=== PATIENT | female | born 1995 | race Two or more races ===

== ENCOUNTER 2023-08-27 22:44 | Inpatient (IN) | payer OTHER ==
[~2023-08-27] VITALS: Ht 160 cm; Wt 78.0 kg
[2023-08-27 23:00] LABS: Basophils # (auto) 0.1 10 ^3/uL (0-0.2); Basophils % (auto) 1.3 % (0.0-2.0); Eosinophils # (auto) 0.1 10 ^3/uL (0-0.8); Eosinophils % (auto) 1.8 % (0.0-7.0); Hematocrit 42.5 % (36.0-46.0); Hemoglobin 14.1 g/dL (12.2-16.2); Lymphocytes # (auto) 3.9 10 ^3/uL (0.4-5.4); Lymphocytes % (auto) 51.6 % (10.0-50.0); Mean Corpuscular Hemoglobin 28.5 pg (28.0-32.0); Mean Corpuscular Hgb Conc. 33.1 g/dL (32.0-36.0); Monocytes # (auto) 0.6 10 ^3/uL (0-1.3); Monocytes % (auto) 7.6 % (0.0-12.0); Neutrophils # (auto) 2.9 10 ^3/uL (1.6-8.6); Neutrophils % (auto) 37.7 % (37.0-80.0); Nucleated Red Blood Cells % 0.1 %; Red Blood Cells 4.94 10^6/uL (4.0-5.20); Red Cell Distribution Width 15.6 % (11.8-14.3); White Blood Cell 7.6 10^3/uL (4.4-10.8)
[2023-08-27 23:19] LABS: Alanine Aminotransferase 97 U/L (7-40); Albumin 4.8 g/dL (3.2-4.8); Alkaline Phosphatase 125 U/L (46-116); Anion Gap 6 (5-15); Aspartate Aminotransferase 77 U/L (13-40); BUN/Creatinine Ratio 8.6 (10.0-20.0); Bilirubin, Total 0.4 mg/dL (0.2-1.0); Blood Urea Nitrogen 7 mg/dL (9-23); Calcium 10.4 mg/dL (8.5-10.1); Carbon Dioxide 29 mmol/L (20-30); Chloride 103 mmol/L (98-107); Glucose 90 mg/dL (74-106); Potassium 3.8 mmol/L (3.5-5.1); Sodium 138 mmol/L (136-145); Total Protein 8.4 g/dL (5.7-8.2)
[2023-08-27] MEDS: ONDANSETRON HCL 4 MG/2 ML VIAL IV ONE (23:29)
[2023-08-27] MEDS: MORPHINE SULFATE 4 MG/ML SYR/VIAL IV ONE (23:30)
[2023-08-28] VITALS (8 sets, daily range): BP systolic 97–140; BP diastolic 47–55; PULSE 53–67; RESP 17–20; TEMP 97.9–98.4; O2SAT 98–100
[2023-08-28 01:42] LABS: Urine Bacteria FEW /hpf (None Seen); Urine Blood Negative /uL (Negative); Urine Clarity Turbid (Clear); Urine Color Light-Yellow (Yellow); Urine Mucus FEW (None Seen); Urine Protein, UAD Negative (Negative); Urine Specific Gravity 1.012 (1.001-1.035); Urine Urobilinogen Normal (Negative); Urine WBC 30 /hpf (0 - 5); Urine pH 6.5 (5.0-9.0)
[2023-08-28] MEDS: NITROFURANTOIN 100 mg CAP PO ONE (03:42)
[2023-08-28] MEDS: NITROGLYCERIN 0.4 MG SL TAB SL ONE (03:42)
[2023-08-28] MEDS ORDERED: MORPHINE SULFATE INJ 2 MG/ml SYRG IV PRN (04:15)
[2023-08-28] MEDS ORDERED: ACETAMINOPHEN 500 MG TAB PO PRN (04:15)
[2023-08-28] MEDS ORDERED: DOCUSATE SOD 100 MG CAP PO PRN (04:15)
[2023-08-28] MEDS ORDERED: ONDANSETRON HCL 4 MG/2 ML VIAL IV PRN (04:15)
[2023-08-28] MEDS: cefTRIAXone 1GM/50ML D5W 50 ML IV SCH (05:24)
[2023-08-28] MEDS: SODIUM CHLOR 0.9% PF (SALINE LOCK) 10ML VIAL/SYR IV SCH (06:02)
[2023-08-28 11:41] LABS: Triglycerides 140 mg/dL (< 150)
[2023-08-28 11:42] LABS: LDL Cholesterol 144 mg/dL (< 100)
[2023-08-28 11:43] LABS: Cholesterol 183 mg/dL (< 200); HDL Cholesterol 27 mg/dL (40-59)
[2023-08-28] MEDS: MORPHINE SULFATE INJ 2 MG/ml SYRG IV PRN (17:11)
[2023-08-28] MEDS: NITROGLYCERIN 0.4 MG SL TAB SL PRN (17:11)
[2023-08-28] MEDS: PANTOPRAZOLE 40 MG TAB PO SCH (20:18)
[2023-08-28] MEDS: ATORVASTATIN 20 MG TAB PO SCH (21:09)
[2023-08-28 22:23] LABS: Erythrocyte Sedimentation Rate 14 mm/hr (0-20)
[2023-08-29] VITALS (8 sets, daily range): BP systolic 90–118; BP diastolic 47–70; PULSE 61–69; RESP 17–20; TEMP 97.8–98.2; O2SAT 98–100
[2023-08-29 08:39] LABS: Amphetamine Screen, Urine Neg (NEGATIVE); Barbiturate Scree,Urine Neg (NEGATIVE); Benzodiazephine Screen, Urine Neg (NEGATIVE); Cocaine Screen, Urine Neg (NEGATIVE); Opiate Scree,Urine Pos (NEGATIVE); Phencyclidine Screen, Urine Neg (NEGATIVE)
[2023-08-29 08:40] LABS: Cannabinoid Screen, Urine Neg (NEGATIVE)
[2023-08-29 13:04] LABS: Basophils # (auto) 0.1 10 ^3/uL (0-0.2); Basophils % (auto) 1.1 % (0.0-2.0); Eosinophils # (auto) 0.2 10 ^3/uL (0-0.8); Hemoglobin 12.8 g/dL (12.2-16.2); Lymphocytes # (auto) 2.9 10 ^3/uL (0.4-5.4); Lymphocytes % (auto) 53.7 % (10.0-50.0); Mean Corpuscular Hemoglobin 28.6 pg (28.0-32.0); Mean Corpuscular Hgb Conc. 32.8 g/dL (32.0-36.0); Mean Corpuscular Volume 87.1 fL (80.0-100.0); Monocytes # (auto) 0.4 10 ^3/uL (0-1.3); Monocytes % (auto) 8.3 % (0.0-12.0); Neutrophils # (auto) 1.7 10 ^3/uL (1.6-8.6); Neutrophils % (auto) 32.9 % (37.0-80.0); Nucleated Red Blood Cells % 0.2 %; Red Blood Cells 4.48 10^6/uL (4.0-5.20); Red Cell Distribution Width 15.2 % (11.8-14.3); White Blood Cell 5.3 10^3/uL (4.4-10.8)
[2023-08-29 13:24] LABS: Alanine Aminotransferase 73 U/L (7-40); Alkaline Phosphatase 113 U/L (46-116); Anion Gap 3 (5-15); Aspartate Aminotransferase 56 U/L (13-40); Bilirubin, Total 0.2 mg/dL (0.2-1.0); Calcium 9.4 mg/dL (8.5-10.1); Carbon Dioxide 28 mmol/L (20-30); Chloride 104 mmol/L (98-107); Glucose 81 mg/dL (74-106); Potassium 4.1 mmol/L (3.5-5.1); Sodium 135 mmol/L (136-145); Total Protein 6.9 g/dL (5.7-8.2)
[2023-08-29 13:28] LABS: BUN/Creatinine Ratio 6.8 (10.0-20.0); Blood Urea Nitrogen < 5 mg/dL (9-23)
[2023-08-29] MEDS ORDERED: PANT40T PO (13:28)
== END 2023-08-29 17:25 | disposition home or self-care (01) | DRG 243 ==
LOC: ER 22:44 → TELE-WESTW 08-28 04:09 → TELE 08-28 04:09 → TELE-WESTW 08-28 06:37
PROVIDERS: ADMIT Internal Medicine Pulmonary Disease; ATTEND Internal Medicine Pulmonary Disease
DX: K21.9 Gastro-esophageal reflux disease without esophagitis (principal); E11.9 Type 2 diabetes mellitus without complications; N39.0 Urinary tract infection, site not specified; E78.5 Hyperlipidemia, unspecified; Z88.6 Allergy status to analgesic agent
CPT/HCPCS: 36415; 80053; 80061; 80307; 81001; 81025; 83036; 83880; 84484; 85025; 85379; 85652; 86141; 87086; 93005; 93306; 96374; 96375; G0378; J2405

== ENCOUNTER 2024-04-14 18:53 | Emergency (ER) | payer OTHER ==
[~2024-04-14 18:53] MED LIST: PANT40T PO
== END 2024-04-14 21:36 | disposition left against medical advice (07) ==
LOC: ER 18:53
DX: R42 Dizziness and giddiness (principal); Z53.21 Procedure and treatment not carried out due to patient leaving prior to being seen by health care provider

== ENCOUNTER 2024-04-15 19:22 | Emergency (ER) | payer OTHER ==
[~2024-04-15] VITALS: Ht 160 cm; Wt 81.2 kg
--- NOTE | 2024-04-15 19:56 | ED.PDOC ---
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 Patient reports consistent bleeding, is no longer using pads or tampons but instead using diapers and is going through 8 per day. Patient has been passing blood clots as well and had 2 episodes of vomiting before ED arrival but has subsided since awaiting here. Patient has seen PCP for vaginal bleeding, was placed on control in which she has been taking but states no change. Patient mentions having no ultrasound done for this. She denies any abdominal pain, fever, chills. Patient also reports that she came into this ED yesterday due to dizziness but ended up leaving but as she got home and was walking upstairs, spouse heard a thump and found patient unconscious on the floor. Patient is unable to recall the event. At this time, patient denies any dizziness. PMHX of DM, bradycardia, and one miscarriage. Time Seen by MD: 19:24 Reviewed Notes: Nurses Notes, Medications, Allergies Allergies: Coded Allergies: Ibuprofen (Verified Allergy, Unknown, 08/27/23) Home Meds Active Scripts Pantoprazole Sodium Sesquihydr (Pantoprazole Sodium) 40 Mg Tab, 40 MG PO DAILY for 10 Days, #10 TAB Prov:ESTIVEN PAVON RESIDENT 08/29/23 Information Source: Patient Mode of Arrival: Ambulatory Timing: Months (2) Severity: Moderate Vaginal Discharge: None Vaginal Lesions: None Bleeding Quality: Bright Red, Clotted Vaginal Mass: None Onset Of Mass/Bleeding: Spontaneous Sexual Activity: Neither Last Consensual [place]: Unknown Control: None Symptoms of Possible : None Associated Signs and Symptoms: Vaginal Bleeding Past Medical History PAST MEDICAL HISTORY: Denies Surgical History: Denies all surgeries 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 Family History Family History: Reviewed,noncontributory to illness, No family hx of Cancer, No family hx of DM, No family hx of Heart monica, No family hx of HTN, No family hx ofKidney monica, No family hx of Liver monica, No family hx of Lung monica, No family hx of Stroke Social History Smoker: Non-Smoker Alcohol: Denies ETOH Use Drugs: Denies Drug Use Lives In: Home Constitutional: denies: chills, diaphoresis, fatigue, fever, malaise, sweats, weakness, others EENTM: denies: blurred vision, double vision, ear bleeding, ear discharge, ear drainage, ear pain, ear ringing, eye pain, eye redness, hearing loss, mouth pain, mouth swelling, nasal discharge, nose bleeding, nose congestion, nose pain, photophobia, tearing, throat pain, throat swelling, voice changes, others Respiratory: denies: cough, hemoptysis, orthopnea, SOB at rest, shortness of breath, SOB with excertion, stridor, wheezing, others Cardiovascular: reports: lightheadedness; denies: chest pain, dizzy spells, diaphoresis, Dyspnea on exertion, edema, irregular heart beat, left arm pain, palpitations, PND, syncope, others Gastrointestinal: denies: abdomen distended, abdominal pain, blood streaked bowels, constipated, diarrhea, dysphagia, difficulty swallowing, hematemesis, melena, nausea, poor appetite, poor fluid intake, rectal bleeding, rectal pain, vomiting, others Genitourinary: reports: abnormal vagina bleeding; denies: burning, dyspareunia, dysuria, flank pain, frequency, hematuria, incontinence, pain, , vagina discharge, urgency, others Neurological: reports: headache; denies: dizziness, fainting, left sided numbness, left sided weakness, numbness, paresthesia, pre-existing deficit, right sided numbness, right sided weakness, seizure, speech problems, tingling, tremors, weakness, others Musculoskeletal: denies: back pain, gout, joint pain, joint swelling, muscle pain, muscle stiffness, neck pain, others Integumetry: denies: bruises, change in color, change in hair/nails, dryness, laceration, lesions, lumps, rash, wounds, others Allergic/Immunocompromised: denies: Difficulty Healing, Frequent Infections, Hives, Itching, others Hematologic/Lymphatic: denies: anemia, blood clots, easy bleeding, easy bruising, swollen glands, others Endocrine: denies: excessive hunger, excessive sweating, excessive thirst, excessive urination, flushing, intolerance to cold, intolerance to heat, unexplained weight gain, unexplained weight loss, others Psychiatric: denies: anxiety, bipolar disorder, depression, hopeless, panic disorder, schizophrenia, sleepless, suicidal, others All Other Systems: Reviewed and Negative Physical Exam General Appearance: No Apparent Distress, Normal HEENT: Normal ENT Inspection, Pharynx Normal, TMs Normal Neck: Full Range of Motion, Non-Tender, Normal, Normal Inspection Respiratory: Chest Non-Tender, Lungs Clear, No Accessory Muscle Use, No Respiratory Distress, Normal Breath Sounds Cardiovascular: No Edema, No JVD, No Murmur, No Gallop, Normal Peripheral Pulses, Regular Rate/Rhythm Breast Exam: Deferred Gastrointestinal: No Organomegaly, Non Tender, No Pulsatile Mass, Normal Bowel Sounds, Soft Genitalia: Deferred Pelvic: Deferred Rectal: Deferred Extremities: No calf tenderness, Normal capillary refill, Normal inspection, Normal range of motion, Non-tender, No pedal edema Musculoskeletal : Apperance: Normal 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 Was a procedure done?: No Differential Diagnosis (BALL POINT SPLITTER) Vaginal Bleeding: - Threatened, Abruptio Placentae, Blood Loss Anemia, Cervicitis, Ectopic , Hormonal, Menorrhagia, Menometrorrhagia, Menstrual Bleeding, Myomatous Uterus, PID, UTI, Vaginitis X-Ray, Labs, Meds, VS Vital Signs Date Time Temp Pulse Resp B/P (MAP) Pulse Ox O2 Delivery O2 Flow Rate FiO2 04/16/24 03:46 98.2 86 16 113/52 (72) 99 98.2 04/16/24 03:45 98.1 86 16 113/52 98.1 04/16/24 03:00 87 18 104/56 (72) 97 04/16/24 02:09 98.3 86 18 104/58 98.3 04/16/24 02:09 98.3 86 18 104/58 (73) 99 98.3 04/16/24 01:56 98.1 86 18 104/70 98.1 04/16/24 01:56 98.1 86 16 104/70 (81) 98 98.1 04/16/24 00:18 98.2 86 18 92/47 98.2 04/16/24 00:18 98.2 86 18 92/47 (62) 98 98.2 04/16/24 00:11 98.2 04/16/24 00:00 88 04/15/24 23:53 97.9 92 16 89/54 (66) 99 97.9 04/15/24 23:53 97.9 92 16 89/54 97.9 04/15/24 23:15 87 17 97 Room Air* 0 21 04/15/24 23:11 98.2 04/15/24 22:45 98.2 89 18 118/68 (85) 99 98.2 04/15/24 19:59 98.9 99 20 127/70 (89) 100 Lab Test 04/15/24 20:10 04/15/24 19:55 Range/Units White Blood Count 8.4 4.4-10.8 10^3/uL Red Blood Count 2.44 L 4.0-5.20 10^6/uL Hemoglobin 7.4 L 12.2-16.2 g/dL Hematocrit 22.4 L 36.0-46.0 % Mean Corpuscular Volume 91.7 80.0-100.0 fL Mean Corpuscular Hemoglobin 30.1 28.0-32.0 pg Mean Corpuscular Hemoglobin Concent 32.8 32.0-36.0 g/dL Red Cell Distribution Width 13.7 11.8-14.3 % Platelet Count 340 140-450 10^3/uL Mean Platelet Volume 7.8 6.9-10.8 fL Neutrophils (%) (Auto) 53.7 37.0-80.0 % Lymphocytes (%) (Auto) 38.8 10.0-50.0 % Monocytes (%) (Auto) 4.5 0.0-12.0 % Eosinophils (%) (Auto) 2.0 0.0-7.0 % Basophils (%) (Auto) 1.0 0.0-2.0 % Neutrophils # (Auto) 4.5 1.6-8.6 10 ^3/uL Lymphocytes # (Auto) 3.3 0.4-5.4 10 ^3/uL Monocytes # (Auto) 0.4 0-1.3 10 ^3/uL Eosinophils # (Auto) 0.2 0-0.8 10 ^3/uL Basophils # (Auto) 0.1 0-0.2 10 ^3/uL Nucleated Red Blood Cells 1.5 % Sodium Level 140 136-145 mmol/L Potassium Level 3.6 3.5-5.1 mmol/L Chloride Level 105 98-107 mmol/L Carbon Dioxide Level 26 20-31 mmol/L Anion Gap 9 5-15 Blood Urea Nitrogen 6 L 9-23 mg/dL Creatinine 0.93 0.550-1.02 mg/dL Glomerular Filtration Rate Calc 85 >90 mL/min BUN/Creatinine Ratio 6.5 L 10.0-20.0 Serum Glucose 118 H 74-106 mg/dL Calcium Level 9.6 8.7-10.4 mg/dL Total Bilirubin 0.2 0.2-1.0 mg/dL Aspartate Amino Transferase (AST) 55 H 13-40 U/L Alanine Aminotransferase (ALT) 45 H 7-40 U/L Alkaline Phosphatase 84 46-116 U/L Total Protein 6.9 5.7-8.2 g/dL Albumin 4.4 3.2-4.8 g/dL Beta HCG, Quantitative 0.4 L 1.5-4.2 mIU/mL Urine Color Light-orange Yellow Urine Clarity Turbid H Clear Urine pH 6.5 5.0-9.0 Urine Specific [place] 1.043 H 1.001-1.035 Urine Protein 2+ H Negative Urine Ketones 1+ H Negative Urine Blood 3+ H Negative /uL Urine Nitrite Negative Negative Urine Bilirubin Negative Negative Urine Urobilinogen 3 H Negative mg/dL Urine Leukocyte Esterase 1+ Negative /uL Urine RBC 1507 0 - 4 /hpf Urine Microscopic WBC 1 0-5 /HPF Urine Squamous Epithelial Cells Few <5 /hpf Urine Bacteria None seen None Seen /hpf Urine Mucus Few None Seen Urine Glucose Normal Normal mg/dL Current Medications Medications (Trade) Dose Ordered Sig/Lita Route Start Time Stop Time Status Last Admin Acetaminophen (Tylenol Tablet) 650 mg ONCE ONCE PO 04/15/24 20:00 04/15/24 20:16 DC 04/15/24 23:11 Acetaminophen/ Hydrocodone Bitart ([place] 5/325MG Tab) 1 tab ONCE ONCE PO 04/16/24 00:30 04/16/24 00:31 DC 04/16/24 00:37 X-Ray, Labs, Meds, VS Comment Pelvic US FINDINGS: The uterus is heterogeneous in echogenicity related to fibroids the largest measuring up to 3.2 cm. Endometrium is homogeneous in echogenicity measuring 9 mm in thickness. Right ovary measures 2.5 X 2.1 X 2.7 cm and appears unremarkable with normal Doppler color flow. Left ovary measures 4.1 X 3.1 X 3.2 cm with normal Doppler color flow. There is a left ovarian cyst measuring up to 3.2 cm. IMPRESSION: Uterine fibroids. Left ovarian cyst measuring up to 3.2 cm. MDM: Patient with history as above presented with vaginal bleeding. History obtained from patient. Patient was nontoxic, stable, afebrile, ambulatory, no acute distress. Exam as above. Labs reviewed. CBC did not show leukocytosis. Anemia was seen with hemoglobin 7.4 and hematocrit at 22.4. CMP did not show significant electrolyte abnormalities. AST elevated at 55 and ALT elevated at 45. Beta hCG was negative. Urinalysis was significant for urine blood and urine RBC, however negative for acute infection. Independently reviewed imaging. Pelvic ultrasound showed uterine fibroids. Reviewed external records. All findings were discussed with the patient. Differential diagnosis considered. Overall presentation is consistent with blood loss anemia due to uterine fibroids. Low suspicion for ovarian torsion, acute infection, ectopic . Patient was treated with [place] and blood transfusions with improvement in symptoms. Patient was reevaluated and vital signs were reviewed. Consideration was given for admission, but the patient was stable for outpatient management. Patient was advised to follow up with OBGYN for further evaluation. Disposition: Discussed the need to follow up diagnostics, including incidental findings. Discharged the patient with instructions to obtain outpatient follow up in 1-2 days of today's symptoms and findings, with strict return precautions if patient develops new or worsening symptoms. This medical document was created using the [employer] dictation system. Although this document has been carefully reviewed, there may still be some phonetic and typographical errors, which are due to imperfections of the [employer] program, and do not reflect any compromise in the patient's medical care. Time of 1ST Reevaluation: 20:00 Reevaluation 1ST: Unchanged Time of 2ND Reevaluation: 03:54 Reevaluation 2ND: Improved Patient Education/Counseling: Diagnosis, Treatment, Prognosis Family Education/Counseling: No Family Present Departure 1 Departure Time of Disposition: 03:55 Impression: Primary Impression: Blood loss anemia Additional Impression: Fibroids Disposition: 01 HOME / SELF CARE / HOMELESS Condition: Fair Critical Care Note Critical Care Time?: No Stability Stability form required: No Heart Score Heart Score: Heart Score Response (Comments) Value History N/A 0 EKG N/A 0 Age N/A 0 Risk Factors N/A 0 Troponin N/A 0 Total 0 I personally scribed for ER ([email or web address]) on 04/15/24 at 20:05. Electronically submitted by Teressa Villeda ([facility]). DAVID CHASE PAC Apr 15, 2024 19:56 ER Apr 15, 2024 20:05
[2024-04-15 20:28] LABS: Urine Bacteria None Seen /hpf (None Seen)
[2024-04-15 20:30] LABS: Basophils # (auto) 0.1 10 ^3/uL (0-0.2); Eosinophils # (auto) 0.2 10 ^3/uL (0-0.8); Mean Corpuscular Hemoglobin 30.1 pg (28.0-32.0); Monocytes # (auto) 0.4 10 ^3/uL (0-1.3); Monocytes % (auto) 4.5 % (0.0-12.0); Red Blood Cells 2.44 10^6/uL (4.0-5.20)
[2024-04-15 20:32] LABS: Hematocrit 22.4 % (36.0-46.0); Hemoglobin 7.4 g/dL (12.2-16.2); Lymphocytes # (auto) 3.3 10 ^3/uL (0.4-5.4); Lymphocytes % (auto) 38.8 % (10.0-50.0); Mean Corpuscular Hgb Conc. 32.8 g/dL (32.0-36.0); Mean Corpuscular Volume 91.7 fL (80.0-100.0); Neutrophils # (auto) 4.5 10 ^3/uL (1.6-8.6); Neutrophils % (auto) 53.7 % (37.0-80.0); Nucleated Red Blood Cells % 1.5 %; Platelet Count (auto) 340 10^3/uL (140-450); Red Cell Distribution Width 13.7 % (11.8-14.3); White Blood Cell 8.4 10^3/uL (4.4-10.8)
[2024-04-15 20:38] LABS: Urine Blood 3+ /uL (Negative); Urine Clarity Turbid (Clear); Urine Color Light-Orange (Yellow); Urine Mucus FEW (None Seen); Urine Protein, UAD 2+ (Negative); Urine Specific Gravity 1.043 (1.001-1.035); Urine Squamous Epithelial Cell FEW /hpf (<5); Urine Urobilinogen 3 mg/dL (Negative); Urine WBC 1 /HPF (0-5); Urine pH 6.5 (5.0-9.0)
[2024-04-15 20:48] LABS: Alkaline Phosphatase 84 U/L (46-116); Anion Gap 9 (5-15); BUN/Creatinine Ratio 6.5 (10.0-20.0); Calcium 9.6 mg/dL (8.7-10.4); Carbon Dioxide 26 mmol/L (20-31); Chloride 105 mmol/L (98-107); Potassium 3.6 mmol/L (3.5-5.1); Sodium 140 mmol/L (136-145)
[2024-04-15 20:49] LABS: Albumin 4.4 g/dL (3.2-4.8); Total Protein 6.9 g/dL (5.7-8.2)
[2024-04-15 20:53] LABS: Alanine Aminotransferase 45 U/L (7-40); Aspartate Aminotransferase 55 U/L (13-40); Bilirubin, Total 0.2 mg/dL (0.2-1.0); Blood Urea Nitrogen 6 mg/dL (9-23); Glucose 118 mg/dL (74-106)
--- NOTE | 2024-04-15 21:56 | DVH ---
INDICATION: Vaginal bleeding x 3 months TECHNIQUE: Multiple real-time grayscale transabdominal sonographic images along with color and duplex doppler of the uterus and ovaries were obtained. COMPARISON: None FINDINGS: The uterus is heterogeneous in echogenicity related to fibroids the largest measuring up to 3.2 cm. E ndometrium is homogeneous in echogenicity measuring 9 mm in thickness. Right ovary measures 2.5 X 2.1 X 2.7 cm and appears unremarkable with normal Doppler color flow. Left ovary measures 4.1 X 3.1 X 3.2 cm with normal Doppler color flow. There is a left ovarian cyst m easuring up to 3.2 cm. IMPRESSION: Uterine fibroids. Left ovarian cyst measuring up to 3.2 cm.
[2024-04-15] MEDS: ACETAMINOPHEN 325 MG TAB PO ONE (23:11)
[2024-04-15 23:15] VITALS: PULSE 87; RESP 17; O2SAT 97
[2024-04-15 23:53] VITALS: BP 89/54; PULSE 92; RESP 16; TEMP 97.9
[2024-04-16 00:18] VITALS: BP 92/47; PULSE 86; RESP 18; TEMP 98.2
[2024-04-16] MEDS: HYDROcodone-ACET 5/325MG TAB PO ONE (00:37)
[2024-04-16 01:56] VITALS: BP 104/70; PULSE 86; RESP 18; TEMP 98.1
[2024-04-16 02:09] VITALS: BP 104/58; PULSE 86; RESP 18; TEMP 98.3
[2024-04-16 02:28] VITALS: BP 102/56; PULSE 92; RESP 15; TEMP 98
[2024-04-16 03:45] VITALS: BP 113/52; PULSE 86; RESP 16; TEMP 98.1
[2024-04-16 03:46] VITALS: BP 113/52; PULSE 86; RESP 16; TEMP 98.2; O2SAT 99
== END 2024-04-16 04:12 | disposition home or self-care (01) ==
LOC: ER 19:22
DX: D50.0 Iron deficiency anemia secondary to blood loss (chronic) (principal); D25.9 Leiomyoma of uterus, unspecified; N83.202 Unspecified ovarian cyst, left side; E11.9 Type 2 diabetes mellitus without complications; Z79.899 Other long term (current) drug therapy; Z88.6 Allergy status to analgesic agent
CPT/HCPCS: 36415; 36430; 76856; 80053; 81001; 84702; 85025; 86850; 86900; 86901; 86920; 99285; P9016

== ENCOUNTER 2024-06-15 09:36 | Inpatient (IN) | payer OTHER ==
[~2024-06-15] VITALS: Ht 160 cm; Wt 77.4 kg
[2024-06-15 10:23] LABS: Eosinophils # (auto) 0 10 ^3/uL (0-0.8); Eosinophils % (auto) 0.2 % (0.0-7.0); Mean Corpuscular Hemoglobin 23.1 pg (28.0-32.0)
[2024-06-15 10:24] LABS: Basophils # (auto) 0.1 10 ^3/uL (0-0.2); Basophils % (auto) 0.6 % (0.0-2.0); Hematocrit 33.8 % (36.0-46.0); Hemoglobin 10.4 g/dL (12.2-16.2); Lymphocytes # (auto) 1.4 10 ^3/uL (0.4-5.4); Lymphocytes % (auto) 15.1 % (10.0-50.0); Mean Corpuscular Hgb Conc. 30.6 g/dL (32.0-36.0); Mean Corpuscular Volume 75.4 fL (80.0-100.0); Monocytes # (auto) 0.3 10 ^3/uL (0-1.3); Neutrophils # (auto) 7.6 10 ^3/uL (1.6-8.6); Neutrophils % (auto) 81.1 % (37.0-80.0); Nucleated Red Blood Cells % 0.1 %; Platelet Count (auto) 483 10^3/uL (140-450); Red Blood Cells 4.49 10^6/uL (4.0-5.20); Red Cell Distribution Width 18.6 % (11.8-14.3); White Blood Cell 9.4 10^3/uL (4.4-10.8)
[2024-06-15 10:26] LABS: Chloride 106 mmol/L (98-107); Potassium 3.8 mmol/L (3.5-5.1); Sodium 138 mmol/L (136-145)
[2024-06-15 10:27] LABS: Anion Gap 8 (5-15); Calcium 9.4 mg/dL (8.7-10.4); Carbon Dioxide 24 mmol/L (20-31)
[2024-06-15 10:32] LABS: BUN/Creatinine Ratio 13.7 (10.0-20.0); Blood Urea Nitrogen 10 mg/dL (9-23)
[2024-06-15 10:34] LABS: Glucose 115 mg/dL (74-106)
[2024-06-15 10:39] LABS: Urine Bacteria None Seen /hpf (None Seen)
--- NOTE | 2024-06-15 10:44 | ED.PDOC ---
History of Present Illness HPI Comments 28 y/o obese F, with a Hx of DM, presents with c/o non-radiating, diffused abdominal pain, nausea, vomiting, diarrhea, shortness of breath, and lightheadedness, today. Patient endorses on ongoing symptoms following initial unprovoked onset, last night, with accompanying several near-syncope events. Patient reports no recent sick contact, travel, spoiled food intake, or illicit substance use along with any additional relevant or pertinent information. Patient denies any hematemesis, constipation, urinary symptoms, chest pain, fever, chills, or other associated symptoms or modifiers at this time. Chief Complaint: Abdominal Pain Time Seen by MD: 10:20 Primary Care Provider: [facility] Reviewed Notes: Nurses Notes, Medications, Allergies Allergies: Coded Allergies: Ibuprofen (Verified Allergy, Unknown, 08/27/23) Home Meds Active Scripts Pantoprazole Sodium Sesquihydr (Pantoprazole Sodium) 40 Mg Tab, 40 MG PO DAILY for 10 Days, #10 TAB Prov:ESTIVEN PAVON RESIDENT 08/29/23 Information Source: Patient Mode of Arrival: Ambulatory Severity: Moderate Timing: Hours Duration: Since onset Prehospital treatment: None Past Medical History PAST MEDICAL HISTORY: DM Past Medical History (Other): obese Surgical History: Denies all surgeries 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 Family History Family History: Reviewed,noncontributory to illness, No family hx of Cancer, No family hx of DM, No family hx of Heart monica, No family hx of HTN, No family hx ofKidney monica, No family hx of Liver monica, No family hx of Lung monica, No family hx of Stroke Social History Smoker: Non-Smoker Alcohol: Denies ETOH Use Drugs: Denies Drug Use Lives In: Home All Other Systems: Reviewed and Negative (Comprehensive systems review obtained and negative except for what is stated in the HPI.) Physical Exam General Appearance: Moderate Distress HEENT: Normal ENT Inspection, Pharynx Normal, TMs Normal Neck: Full Range of Motion, Non-Tender, Normal, Normal Inspection Respiratory: Chest Non-Tender, Lungs Clear, No Accessory Muscle Use, No Respiratory Distress, Normal Breath Sounds Cardiovascular: No Edema, No JVD, No Murmur, No Gallop, Normal Peripheral Pulses, Regular Rate/Rhythm Breast Exam: Deferred Gastrointestinal: Suprapubic Genitalia: Deferred Pelvic: Deferred Rectal: Deferred Extremities: No calf tenderness, Normal capillary refill, Normal inspection, Normal range of motion, Non-tender, No pedal edema Musculoskeletal : Apperance: Normal Neurologic: Alert, 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 Was a procedure done?: No Differential Dx Considerations may include: gastritis, gastroenteritis, viral syndrome, , spoiled food, diverticulitis, colitis, cholecystitis, cholelithiasis, nephrolithiasis, ovarian cysts, ovarian torsion, among others X-Ray, Labs, Meds, VS Vital Signs Date Time Temp Pulse Resp B/P (MAP) Pulse Ox O2 Delivery O2 Flow Rate FiO2 06/15/24 12:19 76 16 99 Room Air* 0 21 06/15/24 11:35 76 16 148/86 (106) 99 06/15/24 09:43 98.1 83 16 122/76 (91) 99 98.1 Lab Test 06/15/24 10:30 06/15/24 09:52 Range/Units Urine Color Light-yellow Yellow Urine Clarity Clear Clear Urine pH 7.5 5.0-9.0 Urine Specific [place] 1.022 1.001-1.035 Urine Protein 1+ H Negative Urine Ketones 1+ H Negative Urine Blood Negative Negative /uL Urine Nitrite Negative Negative Urine Bilirubin Negative Negative Urine Urobilinogen 2 H Negative mg/dL Urine Leukocyte Esterase Negative Negative /uL Urine RBC 6 0 - 4 /hpf Urine Microscopic WBC 4 0-5 /HPF Urine Squamous Epithelial Cells Few <5 /hpf Urine Bacteria None seen None Seen /hpf Urine Mucus Few None Seen Urine Glucose Normal Normal mg/dL White Blood Count 9.4 4.4-10.8 10^3/uL Red Blood Count 4.49 4.0-5.20 10^6/uL Hemoglobin 10.4 L 12.2-16.2 g/dL Hematocrit 33.8 L 36.0-46.0 % Mean Corpuscular Volume 75.4 L 80.0-100.0 fL Mean Corpuscular Hemoglobin 23.1 L 28.0-32.0 pg Mean Corpuscular Hemoglobin Concent 30.6 L 32.0-36.0 g/dL Red Cell Distribution Width 18.6 H 11.8-14.3 % Platelet Count 483 H 140-450 10^3/uL Mean Platelet Volume 8.2 6.9-10.8 fL Neutrophils (%) (Auto) 81.1 H 37.0-80.0 % Lymphocytes (%) (Auto) 15.1 10.0-50.0 % Monocytes (%) (Auto) 3.0 0.0-12.0 % Eosinophils (%) (Auto) 0.2 0.0-7.0 % Basophils (%) (Auto) 0.6 0.0-2.0 % Neutrophils # (Auto) 7.6 1.6-8.6 10 ^3/uL Lymphocytes # (Auto) 1.4 0.4-5.4 10 ^3/uL Monocytes # (Auto) 0.3 0-1.3 10 ^3/uL Eosinophils # (Auto) 0 0-0.8 10 ^3/uL Basophils # (Auto) 0.1 0-0.2 10 ^3/uL Nucleated Red Blood Cells 0.1 % Sodium Level 138 136-145 mmol/L Potassium Level 3.8 3.5-5.1 mmol/L Chloride Level 106 98-107 mmol/L Carbon Dioxide Level 24 20-31 mmol/L Anion Gap 8 5-15 Blood Urea Nitrogen 10 9-23 mg/dL Creatinine 0.73 0.550-1.02 mg/dL Glomerular Filtration Rate Calc 113 >90 mL/min BUN/Creatinine Ratio 13.7 10.0-20.0 Serum Glucose 115 H 74-106 mg/dL Calcium Level 9.4 8.7-10.4 mg/dL Current Medications Medications (Trade) Dose Ordered Sig/Lita Route Start Time Stop Time Status Last Admin Ceftriaxone Sodium 50 ml @ 100 mls/hr ONCE ONCE IV 06/15/24 11:15 06/15/24 11:44 DC 06/15/24 12:13 Sodium Chloride 1,000 ml @ 1,000 mls/hr Q1H ONCE IV 06/15/24 11:15 06/15/24 12:14 DC 06/15/24 11:45 Ondansetron HCl (Zofran) 4 mg ONCE ONCE IV 06/15/24 11:15 06/15/24 11:17 DC 06/15/24 12:13 CT ABDOMEN AND PELVIS WITHOUT CONTRAST CLINICAL HISTORY: colitis TECHNIQUE: Multiple contiguous axial images of the abdomen and pelvis without intravenous contrast. The images were reformatted degenerate coronal and sa gittal reconstructions. All CT scans at this medical facility are performed using dose modulation techniques as appropriate to a performed exam including the following:Automated exposure control was utilized; adjustment of the MA and/or KV according to pa tient size; and use of iterative reconstruction technique. Radiation Dose Information: CT Dose: CTDI volume is 7.6 mGy. Dose-length product is 393 mGy*cm Comparison: None FINDINGS: Evaluation of the abdomen and pelvis is limited without intravenous contrast. The liver, gallbladder, pancreas, kidneys, adrenal glands, and spleen appear within normal limits. There is no gross evidence of abdominal lymphadenopathy. There is no free fluid or free air. The stomach grossly appears unremarkable. The small and large bowel loops demonstrate normal caliber and distribution. There are scattered diverticula in the colon without evidence of acute diverticulitis. The abdominal aorta and IVC appear within normal limits. The bladder appears unremarkable for the degree of distention. The uterus appears within normal limits. There is a 2.9 cm left ovarian cyst.. There is no gross evidence of a pelvic mass. There is no free fluid collection. Lung bases are clear. There is no acute osseous abnormality. IMPRESSION: 1. There is no acute process in the abdomen and pelvis. 2. 2.9 cm left ovarian cyst. HS:Y Patient alert. Complaining of abdominal pain. Vitals stable. Answering questions. Urinalysis shows ketones. Dehydration. Neutrophils are elevated. CT scan of the abdomen. Establish intravenous access. Was given fluids. Was given Rocephin. Reviewed her history. Explained to the patient. Continue cardiac monitoring. Time of 1ST Reevaluation: 10:50 Reevaluation 1ST: Unchanged Patient Education/Counseling: Diagnosis, Treatment Family Education/Counseling: No Family Present Departure 1 Departure Time of Disposition: 11:13 Impression: Primary Impression: Acute abdominal pain Additional Impression: Gastroenteritis Disposition: 09 ADMITTED INPATIENT Admit to: Med Surg Condition: Guarded Critical Care Note Critical Care Time?: No Stability Stability form required: No Heart Score Heart Score: Heart Score Response (Comments) Value History N/A 0 EKG N/A 0 Age N/A 0 Risk Factors N/A 0 Troponin N/A 0 Total 0 I personally scribed for CLAUDINE LOCO MD ([email or web address]) on 06/15/24 at 12:59. Electronically submitted by Quang Us ([email or web address]). WINNIE CHAMPAGNE Jun 15, 2024 10:44 CLAUDINE LOCO MD Jun 15, 2024 11:15
[2024-06-15 10:52] LABS: Urine Blood Negative /uL (Negative); Urine Clarity Clear (Clear); Urine Color Light-Yellow (Yellow); Urine Mucus FEW (None Seen); Urine Protein, UAD 1+ (Negative); Urine Specific Gravity 1.022 (1.001-1.035); Urine Squamous Epithelial Cell FEW /hpf (<5); Urine Urobilinogen 2 mg/dL (Negative); Urine WBC 4 /HPF (0-5); Urine pH 7.5 (5.0-9.0)
[2024-06-15] MEDS: SODIUM CHLORIDE 0.9% 1,000 ML IV ONE (11:45)
--- NOTE | 2024-06-15 11:48 | DVH ---
CT ABDOMEN AND PELVIS WITHOUT CONTRAST CLINICAL HISTORY: colitis TECHNIQUE: Multiple contiguous axial images of the abdomen and pelvis without intravenous contrast. T he images were reformatted degenerate coronal and sagittal reconstructions. All CT scans at this medical facility are performed using dose modulation techniques as appropriate t o a performed exam including the following:Automated exposure control was utilized; adjustment of the MA and/or KV according to patient size; and use of iterative reconstruction technique. Radiation Dose Information: CT Dose: CTDI volume is 7.6 mGy. Dose-length product is 393 mGy*cm Comparison: None FINDINGS: Evaluation of the abdomen and pelvis is limited without intravenous contrast. The liver, gallbladder, pancreas, kidneys, adrenal glands, and spleen appear within normal limits. There is no gross evidence of abdominal lymphadenopathy. There is no free fluid or free air. The stomach grossly appears unremarkable. The small and large bowel loops demonstrate normal caliber and distribution. There are scattered diverticula in the colon without evidence of acute diverticuli tis. The abdominal aorta and IVC appear within normal limits. The bladder appears unremarkable for the degree of distention. The uterus appears within normal limit s. There is a 2.9 cm left ovarian cyst.. There is no gross evidence of a pelvic mass. There is no fr ee fluid collection. Lung bases are clear. There is no acute osseous abnormality. IMPRESSION: 1. There is no acute process in the abdomen and pelvis. 2. 2.9 cm left ovarian cyst. HS:Y
[2024-06-15] MEDS: cefTRIAXone 1GM/50ML D5W 50 ML IV ONE (12:13)
[2024-06-15] MEDS: ONDANSETRON HCL 4 MG/2 ML VIAL IV ONE (12:13)
[2024-06-15 12:19] VITALS: PULSE 76; RESP 16; O2SAT 99
[2024-06-15] MEDS: HYDROcodone-ACET 10/325MG TAB PO ONE ×2 (13:45→13:46)
[2024-06-15] MEDS: metroNIDAZOLE 500MG/100ML 100 ML IV ONE (13:48)
--- NOTE | 2024-06-15 13:55 | DVHHP2 ---
Admitting Diagnosis: Abdominal pain History of Present Illness 28 y/o obese F, with a Hx of DM, presents with c/o non-radiating, diffused abdominal pain, nausea, vomiting, diarrhea, shortness of breath, and lighth eadedness, today. Patient endorses on ongoing symptoms following initial unprovoked onset, last night, with accompanying several near-syncope events. Patient reports no recent sick contact, travel, spoiled food intake, or illicit substance use along with any additional relevant or pertinent information. Patient denies any hematemesis, constipation, urinary symptoms, chest pain, fev er, chills, or other associated symptoms or modifiers at this time. PAST MEDICAL HISTORY: DM Past Medical History (Other): obese Surgical History: Denies all surgeries [employer] History: No Pertinent [employer] History Family History Family History: Reviewed,noncontributory to illness, No family hx of Cancer, No family hx of DM, No family hx of Heart monica, No family hx of HTN, No family hx ofKidney monica, No family hx of Liver monica, No family hx of Lung monica, No family hx of Stroke Social History Smoker: Non-Smoker Alcohol: Denies ETOH Use Drugs: Denies Drug Use Lives In: Home Patient Family History: Patient reports no known family medical history. Allergies: Coded Allergies: Ibuprofen (Verified Allergy, Unknown, 08/27/23) Home Meds Active Scripts Pantoprazole Sodium Sesquihydr (Pantoprazole Sodium) 40 Mg Tab, 40 MG PO DAILY for 10 Days, #10 TAB Prov:ESTIVEN PAVON RESIDENT 08/29/23 Current Medications Current Medications Medications (Trade) Dose Ordered Sig/Lita Route PRN Reason Start Time Stop Time Status Last Admin Sodium Chloride (Saline Lock Ns) 10 ml Q8HR IV 06/15/24 22:00 UNV Docusate Sodium (Colace Capsule) 100 mg BIDPRN PRN PO FOR CONSTIPATION 06/15/24 14:30 UNV Acetaminophen (Tylenol Tablet) 650 mg Q6HP PRN PO PAIN SCALE 1-3 OR TEMP>100.4 06/15/24 14:30 UNV Acetaminophen/ Hydrocodone Bitart ([place] 5/325MG Tab) 1 tab Q4HP PRN PO MODERATE PAIN (4-6 PAIN SCALE) 06/15/24 14:30 UNV Hydromorphone HCl (Dilaudid Injection) 0.5 mg Q4HP PRN IV SEVERE PAIN (7-10 PAIN SCALE) 06/15/24 14:30 UNV Ondansetron HCl (Zofran) 4 mg Q4HP PRN IV NAUSEA / VOMITING 06/15/24 14:30 UNV Enoxaparin Sodium (Lovenox) 40 mg DAILY SC 06/16/24 10:00 UNV Pantoprazole Sodium (Protonix Tablet) 40 mg DAILY PO 06/15/24 14:30 UNV Vital Signs Vital Signs Date Time Temp Pulse Resp B/P (MAP) Pulse Ox O2 Delivery O2 Flow Rate FiO2 06/15/24 12:19 76 16 99 Room Air* 0 21 06/15/24 11:35 148/86 (106) 06/15/24 09:43 98.1 98.1 Physical Exam 28 years old woman, well nourished well developed. Mild distress HEENT-atraumatic normocephalic Heart-regular rate and rhythm Lungs clear to auscultate Abdomen soft, mild tender epigastrium, nondistended Musculoskeletal-no edema cyanosis Neuro-AO x3, no focal deficits Results Labs Test 06/15/24 10:30 06/15/24 09:52 Range/Units Urine Color Light-yellow Yellow Urine Clarity Clear Clear Urine pH 7.5 5.0-9.0 Urine Specific [place] 1.022 1.001-1.035 Urine Protein 1+ H Negative Urine Ketones 1+ H Negative Urine Blood Negative Negative /uL Urine Nitrite Negative Negative Urine Bilirubin Negative Negative Urine Urobilinogen 2 H Negative mg/dL Urine Leukocyte Esterase Negative Negative /uL Urine RBC 6 0 - 4 /hpf Urine Microscopic WBC 4 0-5 /HPF Urine Squamous Epithelial Cells Few <5 /hpf Urine Bacteria None seen None Seen /hpf Urine Mucus Few None Seen Urine Glucose Normal Normal mg/dL Urine Opiates Screen Neg NEGATIVE Urine Fentanyl Screen Neg NEGATIVE Urine Barbiturates Screen Neg NEGATIVE Urine Phencyclidine Screen Neg NEGATIVE Urine Amphetamines Screen Neg NEGATIVE Urine Benzodiazepines Screen Neg NEGATIVE Urine Cocaine Screen Neg NEGATIVE Urine Cannabinoids Screen Neg NEGATIVE White Blood Count 9.4 4.4-10.8 10^3/uL Red Blood Count 4.49 4.0-5.20 10^6/uL Hemoglobin 10.4 L 12.2-16.2 g/dL Hematocrit 33.8 L 36.0-46.0 % Mean Corpuscular Volume 75.4 L 80.0-100.0 fL Mean Corpuscular Hemoglobin 23.1 L 28.0-32.0 pg Mean Corpuscular Hemoglobin Concent 30.6 L 32.0-36.0 g/dL Red Cell Distribution Width 18.6 H 11.8-14.3 % Platelet Count 483 H 140-450 10^3/uL Mean Platelet Volume 8.2 6.9-10.8 fL Neutrophils (%) (Auto) 81.1 H 37.0-80.0 % Lymphocytes (%) (Auto) 15.1 10.0-50.0 % Monocytes (%) (Auto) 3.0 0.0-12.0 % Eosinophils (%) (Auto) 0.2 0.0-7.0 % Basophils (%) (Auto) 0.6 0.0-2.0 % Neutrophils # (Auto) 7.6 1.6-8.6 10 ^3/uL Lymphocytes # (Auto) 1.4 0.4-5.4 10 ^3/uL Monocytes # (Auto) 0.3 0-1.3 10 ^3/uL Eosinophils # (Auto) 0 0-0.8 10 ^3/uL Basophils # (Auto) 0.1 0-0.2 10 ^3/uL Nucleated Red Blood Cells 0.1 % Sodium Level 138 136-145 mmol/L Potassium Level 3.8 3.5-5.1 mmol/L Chloride Level 106 98-107 mmol/L Carbon Dioxide Level 24 20-31 mmol/L Anion Gap 8 5-15 Blood Urea Nitrogen 10 9-23 mg/dL Creatinine 0.73 0.550-1.02 mg/dL Glomerular Filtration Rate Calc 113 >90 mL/min BUN/Creatinine Ratio 13.7 10.0-20.0 Serum Glucose 115 H 74-106 mg/dL Calcium Level 9.4 8.7-10.4 mg/dL Primary Diagnosis Abdominal pain Acute Gastroenteritis Plan IV fluids Antiemetic Pain control Clear liquid diet advance as tolerated PPI for GI prophylaxis SCD for DVT prophylaxis Full code Plan discussed with: Patient Problems List: (1) Gastroenteritis Status: Acute (2) Acute abdominal pain Status: Acute Date of Service: Jun 15, 2024 Billing Provider: JANA ZEE MD Common Visit Codes: 21317-[id number] INP/OBS CARE (MOD) JANA ZEE MD Jun 15, 2024 13:55
[2024-06-15 14:07] LABS: Opiate Scree,Urine Neg (NEGATIVE)
[2024-06-15 14:08] LABS: Amphetamine Screen, Urine Neg (NEGATIVE); Barbiturate Scree,Urine Neg (NEGATIVE); Benzodiazephine Screen, Urine Neg (NEGATIVE); Cannabinoid Screen, Urine Neg (NEGATIVE); Cocaine Screen, Urine Neg (NEGATIVE); Phencyclidine Screen, Urine Neg (NEGATIVE)
[2024-06-15] MEDS ORDERED: ACETAMINOPHEN 325 MG TAB PO PRN (14:30)
[2024-06-15] MEDS ORDERED: ONDANSETRON HCL 4 MG/2 ML VIAL IV PRN (14:30)
[2024-06-15] MEDS ORDERED: HYDROcodone-ACET 5/325MG TAB PO PRN (14:30)
[2024-06-15] MEDS ORDERED: DOCUSATE SOD 100 MG CAP PO PRN (14:30)
[2024-06-15 15:20] VITALS: BP 143/83; PULSE 76; RESP 17; TEMP 98.1; O2SAT 100
[2024-06-15] MEDS: HYDROmorphone HCL 2 MG/ML VL/or syr IV PRN (15:22)
[2024-06-15] MEDS: PANTOPRAZOLE 40 MG TAB PO SCH (16:01)
[2024-06-15] MEDS: LACTATED RINGER'S 1,000 ML IV ONE (16:02)
[2024-06-15 17:00] VITALS: BP 131/76; PULSE 84; TEMP 98.3; O2SAT 94
[2024-06-15 20:00] VITALS: PULSE 83; RESP 18; O2SAT 100
[2024-06-15] MEDS: SODIUM CHLOR 0.9% PF (SALINE LOCK) 10ML VIAL/SYR IV SCH (20:02)
[2024-06-15 21:00] VITALS: BP 144/88; PULSE 83; RESP 18; O2SAT 100
[2024-06-16 01:00] VITALS: BP 133/68; PULSE 93; RESP 18; TEMP 98.6; O2SAT 96
[2024-06-16 04:51] LABS: Basophils # (auto) 0 10 ^3/uL (0-0.2); Eosinophils # (auto) 0.1 10 ^3/uL (0-0.8); Lymphocytes # (auto) 2.1 10 ^3/uL (0.4-5.4)
[2024-06-16 04:53] LABS: Basophils % (auto) 0.2 % (0.0-2.0); Eosinophils % (auto) 0.6 % (0.0-7.0); Hematocrit 29.4 % (36.0-46.0); Hemoglobin 9.3 g/dL (12.2-16.2); Lymphocytes % (auto) 15.5 % (10.0-50.0); Mean Corpuscular Hemoglobin 23.5 pg (28.0-32.0); Mean Corpuscular Hgb Conc. 31.5 g/dL (32.0-36.0); Mean Corpuscular Volume 74.6 fL (80.0-100.0); Monocytes % (auto) 7.7 % (0.0-12.0); Neutrophils # (auto) 10.4 10 ^3/uL (1.6-8.6); Platelet Count (auto) 400 10^3/uL (140-450); Red Blood Cells 3.94 10^6/uL (4.0-5.20); Red Cell Distribution Width 18.5 % (11.8-14.3); White Blood Cell 13.6 10^3/uL (4.4-10.8)
[2024-06-16 04:54] VITALS: BP 135/74; PULSE 88; RESP 20; TEMP 98.7; O2SAT 96
[2024-06-16 05:10] LABS: Alanine Aminotransferase 39 U/L (7-40); Albumin 4.1 g/dL (3.2-4.8); Alkaline Phosphatase 65 U/L (46-116); Anion Gap 10 (5-15); Aspartate Aminotransferase 38 U/L (13-40); BUN/Creatinine Ratio 7.5 (10.0-20.0); Bilirubin, Total 0.4 mg/dL (0.2-1.0); Carbon Dioxide 24 mmol/L (20-31); Chloride 101 mmol/L (98-107); Glucose 97 mg/dL (74-106); Total Protein 6.9 g/dL (5.7-8.2)
[2024-06-16 05:56] LABS: Blood Urea Nitrogen 5 mg/dL (9-23); Calcium 8.7 mg/dL (8.7-10.4); Potassium 3.4 mmol/L (3.5-5.1); Sodium 135 mmol/L (136-145)
[2024-06-16 07:54] VITALS: BP 118/72; PULSE 89; RESP 16; TEMP 98.4; O2SAT 98
[2024-06-16] MEDS: ENOXAPARIN SOD 40 MG/0.4 ML SYRINGE SC SCH (10:34)
[2024-06-16 13:35] VITALS: BP 109/57; PULSE 96; RESP 18; TEMP 98.5; O2SAT 99
--- NOTE | 2024-06-16 13:51 | DVHDS2 ---
Discharge Summary Date of Admission Jun 15, 2024 at 14:27 Date of Discharge: Jun 16, 2024 Labs/Diagnostic Data: Laboratory Results Test 06/16/24 04:30 06/15/24 10:30 White Blood Count 13.6 10^3/uL (4.4-10.8) Red Blood Count 3.94 10^6/uL (4.0-5.20) Hemoglobin 9.3 g/dL (12.2-16.2) Hematocrit 29.4 % (36.0-46.0) Mean Corpuscular Volume 74.6 fL (80.0-100.0) Mean Corpuscular Hemoglobin 23.5 pg (28.0-32.0) Mean Corpuscular Hemoglobin Concent 31.5 g/dL (32.0-36.0) Red Cell Distribution Width 18.5 % (11.8-14.3) Platelet Count 400 10^3/uL (140-450) Mean Platelet Volume 7.7 fL (6.9-10.8) Neutrophils (%) (Auto) 76.0 % (37.0-80.0) Lymphocytes (%) (Auto) 15.5 % (10.0-50.0) Monocytes (%) (Auto) 7.7 % (0.0-12.0) Eosinophils (%) (Auto) 0.6 % (0.0-7.0) Basophils (%) (Auto) 0.2 % (0.0-2.0) Neutrophils # (Auto) 10.4 10 ^3/uL (1.6-8.6) Lymphocytes # (Auto) 2.1 10 ^3/uL (0.4-5.4) Monocytes # (Auto) 1.0 10 ^3/uL (0-1.3) Eosinophils # (Auto) 0.1 10 ^3/uL (0-0.8) Basophils # (Auto) 0 10 ^3/uL (0-0.2) Nucleated Red Blood Cells 0.0 % Sodium Level 135 mmol/L (136-145) Potassium Level 3.4 mmol/L (3.5-5.1) Chloride Level 101 mmol/L (98-107) Carbon Dioxide Level 24 mmol/L (20-31) Anion Gap 10 (5-15) Blood Urea Nitrogen 5 mg/dL (9-23) Creatinine 0.67 mg/dL (0.550-1.02) Glomerular Filtration Rate Calc 121 mL/min (>90) BUN/Creatinine Ratio 7.5 (10.0-20.0) Serum Glucose 97 mg/dL (74-106) Calcium Level 8.7 mg/dL (8.7-10.4) Total Bilirubin 0.4 mg/dL (0.2-1.0) Aspartate Amino Transferase (AST) 38 U/L (13-40) Alanine Aminotransferase (ALT) 39 U/L (7-40) Alkaline Phosphatase 65 U/L (46-116) Total Protein 6.9 g/dL (5.7-8.2) Albumin 4.1 g/dL (3.2-4.8) Urine Color Light-yellow (Yellow) Urine Clarity Clear (Clear) Urine pH 7.5 (5.0-9.0) Urine Specific Lane 1.022 (1.001-1.035) Urine Protein 1+ (Negative) Urine Ketones 1+ (Negative) Urine Blood Negative /uL (Negative) Urine Nitrite Negative (Negative) Urine Bilirubin Negative (Negative) Urine Urobilinogen 2 mg/dL (Negative) Urine Leukocyte Esterase Negative /uL (Negative) Urine RBC 6 /hpf (0 - 4) Urine Microscopic WBC 4 /HPF (0-5) Urine Squamous Epithelial Cells Few /hpf (<5) Urine Bacteria None seen /hpf (None Seen) Urine Mucus Few (None Seen) Urine Glucose Normal mg/dL (Normal) Urine Opiates Screen Neg (NEGATIVE) Urine Fentanyl Screen Neg (NEGATIVE) Urine Barbiturates Screen Neg (NEGATIVE) Urine Phencyclidine Screen Neg (NEGATIVE) Urine Amphetamines Screen Neg (NEGATIVE) Urine Benzodiazepines Screen Neg (NEGATIVE) Urine Cocaine Screen Neg (NEGATIVE) Urine Cannabinoids Screen Neg (NEGATIVE) Other Laboratory Tests 06/16/24 04:30 Brief Hx & Hospital Course: 68-year-old female with a known history of GERD initiation with the hospital with a epigastric pain associated with nausea vomiting. Patient was denies any ED hold off food. Patient was was found to have likely acute gastroenteritis. Patient was currently tolerating diet diet will be advanced once tolerates night patient was can be discharged home. Condition at Discharge: Stable Final Diagnosis/Problems List Abdominal pain unspecified resolved Nausea vomiting Acute gastroenteritis Discharge Disposition: Home SNF Discharge Will this Physician continue t: No Discharge Instruct/Medications Diet: Cardiac 2g Na,low cholest Activity: No Restrictions, As Tolerated Follow Up/Referral: Follow up with the PCP in one week Medications: Resume home medications Discharge Statement: "Patient was advised to return to the ER or call 911 if any headaches, dizziness, shortness of breath, chest pain, abdominal pain, bleeding, fevers, or worsening of medical condition. Patient was counseled about treatment plan, medications, possible side effects, patientverbalized understanding. All questions were answered to the best of my ability. This discharge took greater then 30 minutes in planning, reviewing documentation, counseling the patient, and discussing with other team members." ASSESSMENT ASSESSMENT Assessment Abdominal pain unspecified resolved Nausea vomiting Acute gastroenteritis Date of Service: Jun 16, 2024 Billing Provider: NAYELI GUTIERREZ MD Common Visit Codes: 05623-UIC/OBS DISCH DAY >30min NAYELI GUTIERREZ MD Jun 16, 2024 13:51
[2024-06-16 16:37] VITALS: BP 129/69; PULSE 78; RESP 18
== END 2024-06-16 16:30 | disposition home or self-care (01) | DRG 249 ==
LOC: ER 09:36 → OVERFLOW 14:27
PROVIDERS: ADMIT Internal Medicine; ATTEND Internal Medicine
DX: A09 Infectious gastroenteritis and colitis, unspecified (principal); E11.9 Type 2 diabetes mellitus without complications; E66.9 Obesity, unspecified; K21.9 Gastro-esophageal reflux disease without esophagitis; Z79.899 Other long term (current) drug therapy; Z88.6 Allergy status to analgesic agent; Z68.30 Body mass index [BMI] 30.0-30.9, adult
CPT/HCPCS: 36415; 74176; 80048; 80053; 80307; 81001; 85025; 96365; 96375; G0378; J2405; J3490

== ENCOUNTER 2024-06-17 12:11 | Inpatient (IN) | payer OTHER ==
[~2024-06-17] VITALS: Ht 160 cm; Wt 84.4 kg
--- NOTE | 2024-06-17 12:45 | ED.PDOC ---
GI ASSESSMENT HPI Comments 28 y.o female with a Hx of DM, presents to the ED for a chief complaint of non- radiating, diffused abdominal pain, nausea, vomiting, diarrhea that has been ongoing for the past 2 days. Patient endorses on ongoing symptoms following initial unprovoked. Patient reports no recent sick contact, travel, spoiled food intake, or illicit substance use along with any additional relevant or pertinent information. Patient denies any hematemesis, constipation, urinary symptoms, chest pain, fever, chills, or other associated symptoms or modifiers at this time. Patient was seen 2 days ago at this ED, was admitted and discharged yesterday afternoon with the following diagnosed: Abdominal pain unspecified resolved, Nausea vomiting and Acute gastroenteritis. Patient reports she was prescribed medication but when she went to the pharmacy there was no order and is now back today because symptoms have not resolved. Patient notes pain was active upon discharge. Chief Complaint: Abdominal Pain Time Seen by MD: 12:23 Primary Care Provider: OOA Reviewed Notes: Nurses Notes, Medications, Allergies Allergies: Coded Allergies: Ibuprofen (Verified Allergy, Unknown, 08/27/23) Home Meds Active Scripts Pantoprazole Sodium Sesquihydr (Pantoprazole Sodium) 40 Mg Tab, 40 MG PO DAILY for 10 Days, #10 TAB Prov:ESTIVEN PAVON RESIDENT 08/29/23 Information Source: Patient, Relative Mode of Arrival: Wheelchair Timing: Days (2) Duration: Since onset Quality: Sharp Vomitus: Hard Stool: Loose Severity: Moderate Recent: None Recent Hx of: None Pain Location: Diffuse Modifying Factors: Nothing Associated sign and symptoms: Nausea, Vomiting, Diarrhea, Abdominal Pain Past Medical History PAST MEDICAL HISTORY: DM Surgical History: Denies all surgeries [employer] History: No Pertinent [employer] D[employer]ER History Family History Family History: Reviewed,noncontributory to illness, No family hx of Cancer, No family hx of DM, No family hx of Heart monica, No family hx of HTN, No family hx ofKidney monica, No family hx of Liver monica, No family hx of Lung monica, No family hx of Stroke Social History Smoker: Non-Smoker Alcohol: Denies ETOH Use Drugs: Denies Drug Use Lives In: Home Constitutional: denies: chills, diaphoresis, fatigue, fever, malaise, sweats, weakness, others EENTM: denies: blurred vision, double vision, ear bleeding, ear discharge, ear drainage, ear pain, ear ringing, eye pain, eye redness, hearing loss, mouth pain, mouth swelling, nasal discharge, nose bleeding, nose congestion, nose pain, photophobia, tearing, throat pain, throat swelling, voice changes, others Respiratory: denies: cough, hemoptysis, orthopnea, SOB at rest, shortness of breath, SOB with excertion, stridor, wheezing, others Cardiovascular: denies: chest pain, dizzy spells, diaphoresis, Dyspnea on exertion, edema, irregular heart beat, left arm pain, lightheadedness, palpitations, PND, syncope, others Gastrointestinal: reports: abdominal pain, diarrhea, nausea, vomiting; denies: abdomen distended, blood streaked bowels, constipated, dysphagia, difficulty swallowing, hematemesis, melena, poor appetite, poor fluid intake, rectal blee ding, rectal pain, others Genitourinary: denies: abnormal vagina bleeding, burning, dyspareunia, dysuria, flank pain, frequency, hematuria, incontinence, pain, , vagina discharge, urgency, others Neurological: denies: dizziness, fainting, headache, left sided numbness, left sided weakness, numbness, paresthesia, pre-existing deficit, right sided numbness, right sided weakness, seizure, speech problems, tingling, tremors, weakness, others Musculoskeletal: denies: back pain, gout, joint pain, joint swelling, muscle pain, muscle stiffness, neck pain, others Integumetry: denies: bruises, change in color, change in hair/nails, dryness, laceration, lesions, lumps, rash, wounds, others Allergic/Immunocompromised: denies: Difficulty Healing, Frequent Infections, Hives, Itching, others Hematologic/Lymphatic: denies: anemia, blood clots, easy bleeding, easy bruising, swollen glands, others Endocrine: denies: excessive hunger, excessive sweating, excessive thirst, excessive urination, flushing, intolerance to cold, intolerance to heat, unexplained weight gain, unexplained weight loss, others Psychiatric: denies: anxiety, bipolar disorder, depression, hopeless, panic disorder, schizophrenia, sleepless, suicidal, others All Other Systems: Reviewed and Negative Physical Exam General Appearance: Moderate Distress HEENT: Normal ENT Inspection, Pharynx Normal, TMs Normal Neck: Full Range of Motion, Non-Tender, Normal, Normal Inspection Respiratory: Chest Non-Tender, Lungs Clear, No Accessory Muscle Use, No Respiratory Distress, Normal Breath Sounds Cardiovascular: No Edema, No JVD, No Murmur, No Gallop, Normal Peripheral Pulses, Regular Rate/Rhythm Breast Exam: Deferred Gastrointestinal: No Organomegaly, Non Tender, No Pulsatile Mass, Normal Bowel Sounds, Soft Genitalia: Deferred Pelvic: Deferred Rectal: Deferred Extremities: No calf tenderness, No pedal edema Musculoskeletal : Apperance: Normal Neurologic: Alert Cerebellar Function: NOT DONE Reflexes: NOT DONE Skin: Dry, Normal Color, Warm Peripheral Pulses: 3+ Radial (R), 3+ Radial (L) Lymphatic: No Adenopathy Was a procedure done? Was a procedure done?: No GI differential Dx Differential Diagnosis: Constipation, Diverticular disease, Esophagitis, Gastritis/PUD, Gastroenteritis, Inflammatory BD, Ovarian cyst/torsion, Dehydration, Electrolyte Imbalance, Food Poisoning, , Bacterial, Parasitic, Viral X-Ray, Labs, Meds, VS Vital Signs Date Time Temp Pulse Resp B/P (MAP) Pulse Ox O2 Delivery O2 Flow Rate FiO2 06/17/24 12:55 126 17 95 Room Air* 0 21 06/17/24 12:25 100.3 126 18 125/82 (96) 95 100.3 Lab Test 06/17/24 13:45 06/17/24 12:59 06/17/24 12:36 Range/Units Lactic Acid Level Pending White Blood Count 17.4 #H 4.4-10.8 10^3/uL Red Blood Count 4.20 4.0-5.20 10^6/uL Hemoglobin 9.8 L 12.2-16.2 g/dL Hematocrit 31.6 L 36.0-46.0 % Mean Corpuscular Volume 75.2 L 80.0-100.0 fL Mean Corpuscular Hemoglobin 23.2 L 28.0-32.0 pg Mean Corpuscular Hemoglobin Concent 30.9 L 32.0-36.0 g/dL Red Cell Distribution Width 18.6 H 11.8-14.3 % Platelet Count 420 140-450 10^3/uL Mean Platelet Volume 8.2 6.9-10.8 fL Neutrophils (%) (Auto) 84.2 H 37.0-80.0 % Lymphocytes (%) (Auto) 8.8 L 10.0-50.0 % Monocytes (%) (Auto) 6.2 0.0-12.0 % Eosinophils (%) (Auto) 0.2 0.0-7.0 % Basophils (%) (Auto) 0.6 0.0-2.0 % Neutrophils # (Auto) 14.7 H 1.6-8.6 10 ^3/uL Lymphocytes # (Auto) 1.5 0.4-5.4 10 ^3/uL Monocytes # (Auto) 1.1 0-1.3 10 ^3/uL Eosinophils # (Auto) 0 0-0.8 10 ^3/uL Basophils # (Auto) 0.1 0-0.2 10 ^3/uL Nucleated Red Blood Cells 0.0 % Sodium Level 137 136-145 mmol/L Potassium Level 3.2 L 3.5-5.1 mmol/L Chloride Level 105 98-107 mmol/L Carbon Dioxide Level 21 20-31 mmol/L Anion Gap 11 5-15 Blood Urea Nitrogen 5 L 9-23 mg/dL Creatinine 0.72 0.550-1.02 mg/dL Glomerular Filtration Rate Calc 115 >90 mL/min BUN/Creatinine Ratio 6.9 L 10.0-20.0 Serum Glucose 115 H 74-106 mg/dL Calcium Level 8.9 8.7-10.4 mg/dL Urine Color Pending Urine Clarity Pending Urine pH Pending Urine Specific [place] Pending Urine Protein Pending Urine Ketones Pending Urine Blood Pending Urine Nitrite Pending Urine Bilirubin Pending Urine Urobilinogen Pending Urine Leukocyte Esterase Pending Urine RBC Pending Urine Microscopic WBC Pending Urine Squamous Epithelial Cells Pending Urine Bacteria Pending Urine Glucose Pending Current Medications Medications (Trade) Dose Ordered Sig/Lita Route Start Time Stop Time Status Last Admin Sodium Chloride 1,000 ml @ 1,000 mls/hr Q1H ONCE IV 06/17/24 12:45 06/17/24 13:44 DC 06/17/24 12:59 Ondansetron HCl (Zofran) 4 mg ONCE ONCE IV 06/17/24 12:45 06/17/24 12:46 DC 06/17/24 12:59 Sodium Chloride 1,000 ml @ 1,000 mls/hr Q1H ONCE IVB 06/17/24 13:45 06/17/24 14:44 06/17/24 13:49 Ceftriaxone Sodium 50 ml @ 100 mls/hr ONCE ONCE IV 06/17/24 13:45 06/17/24 14:14 DC 06/17/24 13:49 Metronidazole 100 ml @ 100 mls/hr ONCE ONCE IV 06/17/24 13:45 06/17/24 14:44 06/17/24 14:19 Patient alert. Complaining of abdominal pain nausea vomiting. Has not been able to tolerate any food. Vitals stable. Answering questions. Continues to have pain. Reviewed her previous visit. WBC elevated. Establish intravenous access. Was given fluids. Was given Rocephin. Was given Flagyl. Explained to the patient. Continue monitoring. Time of 1ST Reevaluation: 12:45 Reevaluation 1ST: Unchanged Patient Education/Counseling: Diagnosis, Treatment, Prognosis Family Education/Counseling: No Family Present Departure 1 Departure Time of Disposition: 13:35 Impression: Primary Impression: Acute appendicitis Qualified Codes: K35.80 - Unspecified acute appendicitis Additional Impression: Sepsis, unspecified organism Qualified Codes: A41.9 - Sepsis, unspecified organism Disposition: ADMITTED INPATIENT Admit to: Med Surg Condition: Guarded Critical Care Note Critical Care Time?: Yes (90 min-critical care time only) Critical care comment: Sepsis protocol Stability Stability form required: No I personally scribed for CLAUDINE LOCO MD ([email or web address]) on 06/17/24 at 12:45. Electronically submitted by Teressa Villeda ([facility]). CLAUDINE LOCO MD Jun 17, 2024 12:45
[2024-06-17 12:55] VITALS: PULSE 126; RESP 17; O2SAT 95
[2024-06-17] MEDS: SODIUM CHLORIDE 0.9% 1,000 ML IV ONE ×2 (12:59→13:46)
[2024-06-17] MEDS: ONDANSETRON HCL 4 MG/2 ML VIAL IV ONE ×2 (12:59→17:05)
[2024-06-17 13:15] LABS: Basophils # (auto) 0.1 10 ^3/uL (0-0.2); Basophils % (auto) 0.6 % (0.0-2.0); Eosinophils # (auto) 0 10 ^3/uL (0-0.8); Eosinophils % (auto) 0.2 % (0.0-7.0); Hematocrit 31.6 % (36.0-46.0); Hemoglobin 9.8 g/dL (12.2-16.2); Lymphocytes # (auto) 1.5 10 ^3/uL (0.4-5.4); Lymphocytes % (auto) 8.8 % (10.0-50.0); Mean Corpuscular Hemoglobin 23.2 pg (28.0-32.0); Mean Corpuscular Hgb Conc. 30.9 g/dL (32.0-36.0); Mean Corpuscular Volume 75.2 fL (80.0-100.0); Monocytes # (auto) 1.1 10 ^3/uL (0-1.3); Monocytes % (auto) 6.2 % (0.0-12.0); Neutrophils # (auto) 14.7 10 ^3/uL (1.6-8.6); Neutrophils % (auto) 84.2 % (37.0-80.0); Platelet Count (auto) 420 10^3/uL (140-450); Red Cell Distribution Width 18.6 % (11.8-14.3); White Blood Cell 17.4 10^3/uL (4.4-10.8)
[2024-06-17 13:29] LABS: Chloride 105 mmol/L (98-107); Sodium 137 mmol/L (136-145)
[2024-06-17 13:30] LABS: Anion Gap 11 (5-15); Carbon Dioxide 21 mmol/L (20-31)
[2024-06-17 13:31] LABS: Calcium 8.9 mg/dL (8.7-10.4)
[2024-06-17 13:36] LABS: BUN/Creatinine Ratio 6.9 (10.0-20.0)
[2024-06-17 13:38] LABS: Blood Urea Nitrogen 5 mg/dL (9-23); Glucose 115 mg/dL (74-106); Potassium 3.2 mmol/L (3.5-5.1)
[2024-06-17] MEDS: cefTRIAXone 1GM/50ML D5W 50 ML IV ONE (13:49)
[2024-06-17] MEDS: SODIUM CHLORIDE 0.9% 1,000 ML IVB ONE (13:49)
[2024-06-17 14:18] LABS: Urine Bacteria FEW /hpf (None Seen); Urine Blood Negative /uL (Negative); Urine Clarity Turbid (Clear); Urine Color Orange (Yellow); Urine Mucus FEW (None Seen); Urine Protein, UAD 2+ (Negative); Urine Squamous Epithelial Cell MOD /hpf (<5); Urine Urobilinogen 6 mg/dL (Negative); Urine WBC 9 /HPF (0-5); Urine pH 6.5 (5.0-9.0)
[2024-06-17] MEDS: metroNIDAZOLE 500MG/100ML 100 ML IV ONE (14:19)
--- NOTE | 2024-06-17 14:32 | DVH ---
CT CT AB PEL WO CON-NO ORAL OR IV INDICATION: colitis : 28 old Female colitis EXAM DATE: 06/17/2024 01:53 PM COMPARISON: CT CT AB PEL WO CON-NO ORAL OR IV on DOS: 06/15/24 RADIATION DOSE: CTDIvol: 8.73 mGy, DLP: 463.39 mGy*cm PROCEDURE: Helical CT images were obtained of the abdomen and pelvis without IV contrast Sagittal and coronal reconstructions are provided. ORAL CONTRAST: None. ADDITIONAL IMAGES / REFORMATS: None All C T scans at this medical facility are performed using dose modulation techniques as appropriate to a p erformed exam including the following: Automated exposure control was utilized; adjustment of the MA and/or KV according to patient size; and use of iterative reconstruction technique. FINDINGS: LUNG BASE: Normal. LIVER: Hepatic steatosis. GALLBLADDER AND BILIARY TREE: No calcified gallstones. Normal caliber wall. No intra- or extrahepatic biliary ductal dilation. PANCREAS: Normal. SPLEEN: Normal. BOWEL: Enlarged appendix to 1.1 cm with periappendiceal fat stranding and fluid. ADRENALS: Normal. KIDNEYS AND URETER: Normal. BLADDER: Normal. REPRODUCTIVE ORGANS: 3.1 cm left ovaraian cyst. LYMPH NODES:No lymphadenopathy. PERITONEUM: Trace pelvic fluid. VESSELS: Normal. RETROPERITONEUM: Normal. ABDOMINAL WALL: Normal. BONES: Normal. IMPRESSION: Enlarged appendix to 1.1 cm with periappendiceal fat stranding and fluid can be acute appendicitis. Hepatic steatosis. Critical Result: acute appendicitis Findings discussed with dr rodriguez at 06/17/2024 02:26 PM and acknowledged receipt and understanding of the findings.
--- NOTE | 2024-06-17 15:43 | DVHHP2 ---
Admitting Diagnosis: Abdominal pain History of Present Illness 28 y.o female with a Hx of DM, presents to the ED for a chief complaint of non- radiating, diffused abdominal pain, nausea, vomiting, diarrhea that has been ongoing for the past 2 days. Patient endorses on ongoing symptoms following initial unprovoked. Patient reports no recent sick contact, travel, spoiled food intake, or illicit substance use along with any additional relevant or pertinent information. Patient denies any hematemesis, constipation, urinary symptoms, chest pain, fever, chills, or other associated symptoms or modifiers at this time. Patient was seen 2 days ago at this ED, was admitted and discharged yesterday afternoon with the following diagnosed: Abdominal pain unspecified resolved, Nausea vomiting and Acute gastroenteritis. Patient reports she was prescribed medication but when she went to the pharmacy there was no order and is now back today because symptoms have not resolved. Patient notes pain was active upon discharge. 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 Family History Family History: Reviewed,noncontributory to illness, No family hx of Cancer, No family hx of DM, No family hx of Heart monica, No family hx of HTN, No family hx ofKidney monica, No family hx of Liver monica, No family hx of Lung monica, No family hx of Stroke Social History Smoker: Non-Smoker Alcohol: Denies ETOH Use Drugs: Denies Drug Use Lives In: Home Patient Family History: Depression G8 MOTHER FHx: schizophrenia G8 FATHER Hypertension G8 MOTHER Allergies: Coded Allergies: Ibuprofen (Verified Allergy, Unknown, 08/27/23) Home Meds Active Scripts Pantoprazole Sodium Sesquihydr (Pantoprazole Sodium) 40 Mg Tab, 40 MG PO DAILY for 10 Days, #10 TAB Prov:ESTIVEN PAVON RESIDENT 08/29/23 Current Medications Current Medications Medications (Trade) Dose Ordered Sig/Lita Route PRN Reason Start Time Stop Time Status Last Admin Piperacillin Sod/ Tazobactam Sod 100 ml @ 100 mls/hr Q6H IV 06/17/24 15:45 UNV Sodium Chloride (Saline Lock Ns) 10 ml Q8HR IV 06/17/24 22:00 UNV Acetaminophen (Tylenol Tablet) 650 mg Q6HP PRN PO PAIN SCALE 1-3 OR TEMP>100.4 06/17/24 15:45 UNV Acetaminophen/ Hydrocodone Bitart ([place] 5/325MG Tab) 1 tab Q4HP PRN PO MODERATE PAIN (4-6 PAIN SCALE) 06/17/24 15:45 UNV Hydromorphone HCl (Dilaudid Injection) 0.5 mg Q4HP PRN IV SEVERE PAIN (7-10 PAIN SCALE) 06/17/24 15:45 UNV Ondansetron HCl (Zofran) 4 mg Q4HP PRN IV NAUSEA / VOMITING 06/17/24 15:45 UNV Vital Signs Vital Signs Date Time Temp Pulse Resp B/P (MAP) Pulse Ox O2 Delivery O2 Flow Rate FiO2 06/17/24 16:21 113 20 06/17/24 16:21 98.6 128/78 (95) 100 98.6 06/17/24 12:55 Room Air* 0 21 Physical Exam Generally 28 years old woman, well nourished well developed. Moderate distress HEENT-atraumatic normocephalic Heart-regular rate and rhythm Lungs clear to auscultate bilaterally Abdomen soft, tender to palpate right lower quadrant, nondistended Musculoskeletal-no edema cyanosis Neuro-AO x3, no focal deficits Results Labs Test 06/17/24 13:45 06/17/24 12:59 06/17/24 12:36 Range/Units Lactic Acid Level 1.4 0.4-2.0 mmol/L White Blood Count 17.4 #H 4.4-10.8 10^3/uL Red Blood Count 4.20 4.0-5.20 10^6/uL Hemoglobin 9.8 L 12.2-16.2 g/dL Hematocrit 31.6 L 36.0-46.0 % Mean Corpuscular Volume 75.2 L 80.0-100.0 fL Mean Corpuscular Hemoglobin 23.2 L 28.0-32.0 pg Mean Corpuscular Hemoglobin Concent 30.9 L 32.0-36.0 g/dL Red Cell Distribution Width 18.6 H 11.8-14.3 % Platelet Count 420 140-450 10^3/uL Mean Platelet Volume 8.2 6.9-10.8 fL Neutrophils (%) (Auto) 84.2 H 37.0-80.0 % Lymphocytes (%) (Auto) 8.8 L 10.0-50.0 % Monocytes (%) (Auto) 6.2 0.0-12.0 % Eosinophils (%) (Auto) 0.2 0.0-7.0 % Basophils (%) (Auto) 0.6 0.0-2.0 % Neutrophils # (Auto) 14.7 H 1.6-8.6 10 ^3/uL Lymphocytes # (Auto) 1.5 0.4-5.4 10 ^3/uL Monocytes # (Auto) 1.1 0-1.3 10 ^3/uL Eosinophils # (Auto) 0 0-0.8 10 ^3/uL Basophils # (Auto) 0.1 0-0.2 10 ^3/uL Nucleated Red Blood Cells 0.0 % Sodium Level 137 136-145 mmol/L Potassium Level 3.2 L 3.5-5.1 mmol/L Chloride Level 105 98-107 mmol/L Carbon Dioxide Level 21 20-31 mmol/L Anion Gap 11 5-15 Blood Urea Nitrogen 5 L 9-23 mg/dL Creatinine 0.72 0.550-1.02 mg/dL Glomerular Filtration Rate Calc 115 >90 mL/min BUN/Creatinine Ratio 6.9 L 10.0-20.0 Serum Glucose 115 H 74-106 mg/dL Calcium Level 8.9 8.7-10.4 mg/dL Urine Color [place] H Yellow Urine Clarity Turbid H Clear Urine pH 6.5 5.0-9.0 Urine Specific [place] 1.030 1.001-1.035 Urine Protein 2+ H Negative Urine Ketones 1+ H Negative Urine Blood Negative Negative /uL Urine Nitrite Negative Negative Urine Bilirubin 1+ H Negative Urine Urobilinogen 6 Negative mg/dL Urine Leukocyte Esterase Trace Negative /uL Urine RBC 10 0 - 4 /hpf Urine Microscopic WBC 9 H 0-5 /HPF Urine Squamous Epithelial Cells Mod <5 /hpf Urine Bacteria Few H None Seen /hpf Urine Mucus Few None Seen Urine Glucose Normal Normal mg/dL Primary Diagnosis Acute appendicitis Sepsis Plan Start Zosyn for broad-spectrum antibiotics Check blood culture Surgery consult in ED for acute appendicitis Pain control Bowel regimen NPO except meds for possible procedure Full code SCD for DVT prophylaxis none PPI for GI prophylaxis Plan discussed with: Patient Problems List: (1) Sepsis, unspecified organism Status: Acute (2) Acute appendicitis Status: Acute Date of Service: Jun 17, 2024 Billing Provider: JANA ZEE MD Common Visit Codes: [id number] INP/OBS CARE (HIGH) JANA ZEE MD Jun 17, 2024 15:43
[2024-06-17] MEDS ORDERED: HYDROmorphone HCL 2 MG/ML VL/or syr IV PRN (15:45)
[2024-06-17] MEDS: MORPHINE SULFATE 4 MG/ML SYR/VIAL IV ONE (17:05)
[2024-06-17] MEDS: HYDROcodone-ACET 5/325MG TAB PO PRN (17:42)
[2024-06-17] MEDS: PIPERACILLIN-TAZOB 3.375GM 100 ML IV ONE (20:53)
[2024-06-17] MEDS: SODIUM CHLOR 0.9% PF (SALINE LOCK) 10ML VIAL/SYR IV SCH (22:05)
[2024-06-17] MEDS: MORPHINE SULFATE 4 MG/ML SYR/VIAL IV PRN (22:43)
[2024-06-17 23:01] VITALS: BP 126/63; PULSE 117; RESP 18; RESP 19; TEMP 98.1; O2SAT 98
[2024-06-17] MEDS: PIPERACILLIN-TAZOB 3.375GM 100 ML IV SCH (23:03)
[2024-06-18] VITALS (8 sets, daily range): BP systolic 108–131; BP diastolic 55–84; PULSE 105–123; RESP 15–20; TEMP 98–101.3; O2SAT 94–99
[2024-06-18] MEDS: HYDROMORPHONE HCL 1 MG/ML INJ IV PRN (01:17)
[2024-06-18] MEDS: HYDROcodone-ACET 10/325MG TAB PO PRN (08:46)
[2024-06-18 08:58] LABS: Basophils # (auto) 0.1 10 ^3/uL (0-0.2); Basophils % (auto) 0.3 % (0.0-2.0); Eosinophils # (auto) 0 10 ^3/uL (0-0.8); Eosinophils % (auto) 0.2 % (0.0-7.0); Hematocrit 30.2 % (36.0-46.0); Hemoglobin 9.3 g/dL (12.2-16.2); Lymphocytes # (auto) 1.7 10 ^3/uL (0.4-5.4); Lymphocytes % (auto) 9.2 % (10.0-50.0); Mean Corpuscular Hgb Conc. 30.9 g/dL (32.0-36.0); Mean Corpuscular Volume 74.5 fL (80.0-100.0); Monocytes # (auto) 1.3 10 ^3/uL (0-1.3); Monocytes % (auto) 6.9 % (0.0-12.0); Neutrophils # (auto) 15.5 10 ^3/uL (1.6-8.6); Neutrophils % (auto) 83.4 % (37.0-80.0); Platelet Count (auto) 425 10^3/uL (140-450); Red Blood Cells 4.05 10^6/uL (4.0-5.20); Red Cell Distribution Width 19.6 % (11.8-14.3); White Blood Cell 18.6 10^3/uL (4.4-10.8)
[2024-06-18 09:12] LABS: INR 1.03 (0.9-1.15); Partial Thromboplastin Time 25.9 SEC (24.5-34.5); Prothrombin Time 10.9 sec (9.3-11.8)
[2024-06-18 09:15] LABS: Alanine Aminotransferase 25 U/L (7-40); Albumin 4.4 g/dL (3.2-4.8); Alkaline Phosphatase 94 U/L (46-116); Anion Gap 11 (5-15); Aspartate Aminotransferase 17 U/L (13-40); BUN/Creatinine Ratio 6.5 (10.0-20.0); Calcium 9.5 mg/dL (8.7-10.4); Carbon Dioxide 25 mmol/L (20-31); Chloride 102 mmol/L (98-107); Glucose 93 mg/dL (74-106); Sodium 138 mmol/L (136-145); Total Protein 7.4 g/dL (5.7-8.2)
[2024-06-18 09:17] LABS: Bilirubin, Total 1.2 mg/dL (0.2-1.0); Blood Urea Nitrogen 6 mg/dL (9-23); Potassium 3.3 mmol/L (3.5-5.1)
[2024-06-18] MEDS: HYDROmorphone HCL 2 MG/ML VL/or syr IV SCH (10:07)
[2024-06-18] MEDS: PANTOPRAZOLE 40 MG/10 ML VIAL INJ IV SCH (10:07)
[2024-06-18] MEDS: ACETAMINOPHEN 325 MG TAB PO PRN (10:39)
[2024-06-18] MEDS: POTASSIUM CHLORIDE 60 MEQ, LIDOCAINE 1% (LOCAL ANESTH.) 6 ML in SODIUM CHL 0.9% 500 ML IV ONE (10:41)
--- NOTE | 2024-06-18 17:11 | DVHINCON2 ---
Consultation - Surgical Date Seen: Jun 18, 2024 Referring Physician Referring Physician carlo Reason for Consultation appendicitis History of Present Illness History of Present Illness 28 y.o female with a Hx of DM, presents to the ED for a chief complaint of non-radiating, diffused abdominal pain, nausea, vomiting, diarrhea that has been ongoing for the past 2 days. Patient endorses on ongoing symptoms following initial unprovoked. Patient reports no recent sick contact, travel, spoiled food intake, or illicit substance use along with any additional relevant or pertinent information. Patient denies any hematemesis, constipation, urinary symptoms, chest pain, fever, chills, or other associated symptoms or modifiers at this time. Patient was seen 2 days ago at this ED, was admitted and discharged yesterday afternoon with the following diagnosed: Abdominal pain unspecified resolved, Nausea vomiting and Acute gastroenteritis. Patient reports she was prescribed medication but when she went to the pharmacy there was no order and is now back today because symptoms have not resolved. Patient notes pain was active upon discharge. Since being admitted yesterday. Surgical consult was not obtained until 1 hour ago. I went to see the patient is very upset no one has seen patient since yesterday. Continues to have abd. pain. CT scan demonstrates prob. appendicitis. WBC 18 Past Medical/Surgical History Past Medical/Surgical History None Family and Social History Family and Social History None Allergies and medications Allergies: Coded Allergies: Ibuprofen (Verified Allergy, Unknown, 08/27/23) Home Meds Active Scripts Pantoprazole Sodium Sesquihydr (Pantoprazole Sodium) 40 Mg Tab, 40 MG PO DAILY for 10 Days, #10 TAB Prov:ESTIVEN PAVON RESIDENT 08/29/23 Review of systems Review of Systems: HEENT:Normal, CVS:Normal, RESPIRATORY:Normal, GI:Abnormal, :Normal Examination Vital signs Vital Signs Date Time Temp Pulse Resp B/P (MAP) Pulse Ox O2 Delivery O2 Flow Rate FiO2 06/18/24 15:38 97 17 116/68 06/18/24 13:15 99.1 99 99.1 06/18/24 08:20 Room Air* 0 21 Medications Current Medications Medications (Trade) Dose Ordered Sig/Lita Route PRN Reason Start Time Stop Time Status Last Admin Piperacillin Sod/ Tazobactam Sod 100 ml @ 100 mls/hr Q6HR IV 06/18/24 00:00 06/18/24 05:40 Sodium Chloride (Saline Lock Ns) 10 ml Q8HR IV 06/17/24 22:00 06/18/24 15:30 Pantoprazole Sodium (Protonix) 40 mg DAILY IV 06/18/24 10:00 06/18/24 10:07 Acetaminophen/ Hydrocodone Bitart ([place] 10/325MG Tab) 1 tab Q4HP PRN PO MODERATE PAIN (4-6 PAIN SCALE) 06/17/24 21:15 Morphine Sulfate 4 mg Q3HPRN PRN IV MODERATE PAIN (4-6 PAIN SCALE) 06/17/24 21:15 06/18/24 00:17 DC 06/17/24 22:43 Hydromorphone HCl (Dilaudid Injection) 0.25 mg Q4HPRN PRN IV SEVERE PAIN (7-10 PAIN SCALE) 06/18/24 00:30 06/18/24 09:14 DC 06/18/24 05:56 Hydromorphone HCl (Dilaudid Injection) 0.25 mg Q4HR IV 06/18/24 10:00 06/18/24 15:38 Laboratory Labs Test 06/18/24 08:34 06/17/24 13:45 06/17/24 12:36 Range/Units White Blood Count 18.6 H 4.4-10.8 10^3/uL Red Blood Count 4.05 4.0-5.20 10^6/uL Hemoglobin 9.3 L 12.2-16.2 g/dL Hematocrit 30.2 L 36.0-46.0 % Mean Corpuscular Volume 74.5 L 80.0-100.0 fL Mean Corpuscular Hemoglobin 23.0 L 28.0-32.0 pg Mean Corpuscular Hemoglobin Concent 30.9 L 32.0-36.0 g/dL Red Cell Distribution Width 19.6 H 11.8-14.3 % Platelet Count 425 140-450 10^3/uL Mean Platelet Volume 7.9 6.9-10.8 fL Neutrophils (%) (Auto) 83.4 H 37.0-80.0 % Lymphocytes (%) (Auto) 9.2 L 10.0-50.0 % Monocytes (%) (Auto) 6.9 0.0-12.0 % Eosinophils (%) (Auto) 0.2 0.0-7.0 % Basophils (%) (Auto) 0.3 0.0-2.0 % Neutrophils # (Auto) 15.5 H 1.6-8.6 10 ^3/uL Lymphocytes # (Auto) 1.7 0.4-5.4 10 ^3/uL Monocytes # (Auto) 1.3 0-1.3 10 ^3/uL Eosinophils # (Auto) 0 0-0.8 10 ^3/uL Basophils # (Auto) 0.1 0-0.2 10 ^3/uL Nucleated Red Blood Cells 0.0 % Prothrombin Time 10.9 9.3-11.8 sec Prothrombin Time INR 1.03 0.9-1.15 Activated Partial Thromboplast Time 25.9 24.5-34.5 SEC Sodium Level 138 136-145 mmol/L Potassium Level 3.3 L 3.5-5.1 mmol/L Chloride Level 102 98-107 mmol/L Carbon Dioxide Level 25 20-31 mmol/L Anion Gap 11 5-15 Blood Urea Nitrogen 6 L 9-23 mg/dL Creatinine 0.93 0.550-1.02 mg/dL Glomerular Filtration Rate Calc 85 >90 mL/min BUN/Creatinine Ratio 6.5 L 10.0-20.0 Serum Glucose 93 74-106 mg/dL Hemoglobin A1c 5.4 <5.7 % A1C Calcium Level 9.5 8.7-10.4 mg/dL Total Bilirubin 1.2 H 0.2-1.0 mg/dL Aspartate Amino Transferase (AST) 17 13-40 U/L Alanine Aminotransferase (ALT) 25 7-40 U/L Alkaline Phosphatase 94 46-116 U/L Total Protein 7.4 5.7-8.2 g/dL Albumin 4.4 3.2-4.8 g/dL Lactic Acid Level 1.4 0.4-2.0 mmol/L Urine Color [place] H Yellow Urine Clarity Turbid H Clear Urine pH 6.5 5.0-9.0 Urine Specific [place] 1.030 1.001-1.035 Urine Protein 2+ H Negative Urine Ketones 1+ H Negative Urine Blood Negative Negative /uL Urine Nitrite Negative Negative Urine Bilirubin 1+ H Negative Urine Urobilinogen 6 Negative mg/dL Urine Leukocyte Esterase Trace Negative /uL Urine RBC 10 0 - 4 /hpf Urine Microscopic WBC 9 H 0-5 /HPF Urine Squamous Epithelial Cells Mod <5 /hpf Urine Bacteria Few H None Seen /hpf Urine Mucus Few None Seen Urine Glucose Normal Normal mg/dL Microbiology Date/Time Source Procedure Growth Status 06/17/24 13:45 Blood Blood Culture - Preliminary NO GROWTH AFTER 24 HOURS OF INCUBATION. Resulted CT CT AB PEL WO CON-NO ORAL OR IV INDICATION: colitis : 28 old Female colitis EXAM DATE: 06/17/2024 01:53 PM COMPARISON: CT CT AB PEL WO CON-NO ORAL OR IV on DOS: 06/15/24 RADIATION DOSE: CTDIvol: 8.73 mGy, DLP: 463.39 mGy*cm PROCEDURE: Helical CT images were obtained of the abdomen and pelvis without IV contrast Sagittal and coronal reconstructions are provided. ORAL CONTRAST: None. ADDITIONAL IMAGES / REFORMATS: None All CT scans at this medical facility are performed using dose modulation techniques as appropriate to a performed exam including the following: Automated exposure control was utilized; adjustment of the MA and/or KV according to patient size; and use of iterative reconstruction technique. FINDINGS: LUNG BASE: Normal. LIVER: Hepatic steatosis. GALLBLADDER AND BILIARY TREE: No calcified gallstones. Normal caliber wall. No intra- or extrahepatic biliary ductal dilation. PANCREAS: Normal. SPLEEN: Normal. BOWEL: Enlarged appendix to 1.1 cm with periappendiceal fat stranding and fluid. ADRENALS: Normal. KIDNEYS AND URETER: Normal. BLADDER: Normal. REPRODUCTIVE ORGANS: 3.1 cm left ovaraian cyst. LYMPH NODES:No lymphadenopathy. PERITONEUM: Trace pelvic fluid. VESSELS: Normal. RETROPERITONEUM: Normal. ABDOMINAL WALL: Normal. BONES: Normal. IMPRESSION: Enlarged appendix to 1.1 cm with periappendiceal fat stranding and fluid can be acute appendicitis. Hepatic steatosis. Critical Result: acute appendicitis Examination: GENERAL:Normal, HEENT:Normal, NECK:Normal, LUNGS:Normal, CVS:Normal, ABDOMEN:Abnormal (Abdominal pain greatest in the right lower quadrant. Guarding.), SKIN:Normal, NEURO:Normal, :Normal Problem List/Assessment/Plan Problems: (1) Acute appendicitis Assessment and Plan Appendicitis NPO, IV fluids, IV antibiotics, we will plan on performing laparoscopic possible open appendectomy Plan discussed with Plan discussed with: Patient Visit Coding Surgery Date of Service if different f: Jun 18, 2024 Billing Provider: RUPALI EDGAR Jr., MD Surgery Visit Codes: 87126 - INP CONSULT <55 MIN RUPALI EDGAR Jr., MD Jun 18, 2024 17:11
--- NOTE | 2024-06-18 17:37 | DVHPNRES ---
Progress Note Date Seen: Jun 18, 2024 Resident Creating Document: MULU ORELLANA RESIDENT Has the PT tested + for MRSA If YES, has PT been informed?: No Medical Necessity Reason Pt with a Central, PICC or Fol: No Medical Necessity Reason History and physical 28 y.o female with a Hx of DM, presents to the ED for a chief complaint of non- radiating, diffused abdominal pain, nausea, vomiting, diarrhea that has been ongoing for the past 2 days. Patient endorses on ongoing symptoms following initial unprovoked. Patient reports no recent sick contact, travel, spoiled food intake, or illicit substance use along with any additional relevant or pertinent information. Patient denies any hematemesis, constipation, urinary symptoms, chest pain, fever, chills, or other associated symptoms or modifiers at this time. Patient was seen 2 days ago at this ED, was admitted and discharged yesterday afternoon with the following diagnosed: Abdominal pain unspecified resolved, Nausea vomiting and Acute gastroenteritis. Patient reports she was prescribed medication but when she went to the pharmacy there was no order and is now back today because symptoms have not resolved. Patient notes pain was active upon discharge. Pmhx: DM Pshx: Denies all surgeries Fhx: DM; No stroke, cancer or heart diseases. Shx: PN 06/18/2024 Patient seen and examined today at the bed side. She was in such an excruciating pain. Pain mainly located in the upper abdomen. Vitals signs shows evidence of sepsis with fever, tachycardia and leukocytosis. CT abdomen revealed Enlarged appendix to 1.1 cm with periappendiceal fat stranding and fluid can be acute appendicitis. Hepatic steatosis. Surgical consult placed 06/17/2024. Currently pending surgical evaluation. Subjective Review of Systems Constitutional: fever, chills,feeling sick HEENT: Denies headache, ear pain, ear discharges, conjunctivitis, nasal discharge throat pain Cardiovascular: Denies chest pain; palpitation, orthopnea, PND, or pedal edema Respiratory: Denies shortness of breath, cough cough, sputum production, hemoptysis, GI: abdominal pain, nausea, vomiting, diarrhea, NO hematemesis OR hematochezia, : Denies frequency, urgency, hematuria, Endocrine: Denies unintentional weight gain or weight loss, feeling of hot flashes, Jerson: Denies easy bruising, bleeding disorders, epistaxis Musculoskeletal: Denies joint pains, muscle aches Psych: No evidence of depression, sabina, suicidal ideation Objective vital signs Vital Sign Date Time Temp Pulse Resp B/P (MAP) Pulse Ox O2 Delivery O2 Flow Rate FiO2 06/18/24 15:38 97 17 116/68 06/18/24 13:15 99.1 99 99.1 06/18/24 08:20 Room Air* 0 21 Total Intake and Output 06/17/24 06/17/24 06/18/24 15:00 23:00 07:00 Intake Total 1050 ml Balance 1050 ml medications Current Medications Medications Dose Ordered Sig/Lita Route Start Time Stop Time Status Last Admin Dose Admin Piperacillin Sod/ Tazobactam Sod 100 ml @ 100 mls/hr Q6HR IV 06/18/24 00:00 06/18/24 05:40 100 MLS/HR Sodium Chloride 10 ml Q8HR IV 06/17/24 22:00 06/18/24 15:30 10 ML Acetaminophen 650 mg Q6HP PRN PO 06/17/24 15:45 06/18/24 10:39 650 MG Acetaminophen/ Hydrocodone Bitart 1 tab Q4HP PRN PO 06/17/24 15:45 06/17/24 17:42 1 TAB Ondansetron HCl 4 mg Q4HP PRN IV 06/17/24 15:45 Pantoprazole Sodium 40 mg DAILY IV 06/18/24 10:00 06/18/24 10:07 40 MG Acetaminophen/ Hydrocodone Bitart 1 tab Q4HP PRN PO 06/17/24 21:15 Hydromorphone HCl 0.25 mg Q4HR IV 06/18/24 10:00 06/18/24 15:38 0.25 MG Examination General Appearance: Alert, Oriented X3, Cooperative, Severe acute distress HEENT: Atraumatic, PERRLA, EOMI, Mucous membrane moist/pink Respiratory: Clear to auscultation, Normal air movement Cardiovascular: Tachycardia, Normal S1, Normal S2, No murmurs, no chest wall tenderness Abdominal: Distention, tenderness, Not allowing me to toucher her abdomen Extremities: No clubbing, No cyanosis, No edema, Normal pulses, No tenderness/swelling Skin: No rashes, No breakdown, No significant lesion Neuro: Normal gait, Normal speech, Strength at 5/5 X4 ext, Normal tone, Sensation intact, Cranial nerves 3-12 NL, Reflexes 2+ Psych/Mental Status: Mental status NL, Mood NL laboratory and microbiology Laboratory Tests 06/18/24 08:34 Test 06/18/24 08:34 Range/Units Serum Glucose 93 74-106 mg/dL Microbiology Date/Time Source Procedure Growth Status 06/17/24 13:45 Blood Blood Culture - Preliminary NO GROWTH AFTER 24 HOURS OF INCUBATION. Resulted Problem List/Assessment/Plan Problem List/Assessment/Plan Sepsis due to acute appendicitis --> Zosyn --> fluid --> Dilaudid --> Repeat CBC, CMP in the am Acute appendicitis -->Surgery consult --> PT INR obtained -->Keep patient NPO Microcytic anemia, likely IRON --> low MCV, high RDW OBESITY GRADE 1 BMI--> 31.2 Hypokalemia --> replaced Care discussed for more than 25 minute: Full code Case and plan discussed + Dr. Hannah Plan discussed with: Patient My Orders My Orders Orders - MULU ORELLANA RESIDENT Procedure Category Date Status Time Npo (Nothing By DIET 06/18/24 Transmitted Mouth) Diet Breakfast Hydromorphone PHA 06/18/24 In Process Injection (Dilaudid 10:00 Mrsa Screen MARIANA 06/18/24 In Process 11:42 Dietary Evaluation Review Comments: 1. Currently NPO; pt not to go >7 days NPO diet only (Currently Day 1) 2. Rule out infectious causes for diarrhea; if stool tests are negative consider anti-diarrheal medication 3. Consider to monitor/replete lytes to WNL - noted hypokalemia, replacing Expected Outcomes/Goals: Timely diet progression, improved abd pain and GI sx. Date of Service: Jun 18, 2024 Billing Provider: SHAY HANNAH MD Common Visit Codes: [id number] INP/OBS CARE(HIGH) MULU ORELLANA Jun 18, 2024 17:37 SHAY HANNAH MD Jun 20, 2024 22:10
[2024-06-18] MEDS: SODIUM CHLORIDE 0.9% 1,000 ML IV SCH (17:47)
[2024-06-19] VITALS (15 sets, daily range): BP systolic 97–130; BP diastolic 44–83; PULSE 94–108; RESP 14–20; TEMP 98–99.6; O2SAT 88–99
[2024-06-19] MEDS ORDERED: fentaNYL CITRATE 100 MCG/2 ML VL ONE ×2 (07:13→07:32)
[2024-06-19] MEDS ORDERED: MIDAZOLAM HCL 2MG/2ML 2ml VIAL (1mg/ml) ONE (07:13)
[2024-06-19] MEDS ORDERED: ONDANSETRON HCL 4 MG/2 ML VIAL ONE (07:21)
[2024-06-19] MEDS ORDERED: ROCURONIUM 10MG/ML 10ML VIAL IV ONE (07:21)
[2024-06-19] MEDS ORDERED: LIDOCAINE 2% (LOCAL ANESTH.) PF 5ml SDV ONE (07:21)
[2024-06-19] MEDS ORDERED: PROPOFOL 10 MG/ML 20 ML IV ONE (07:21)
[2024-06-19] MEDS ORDERED: DexAMETHasone SOD PHOS 10MG/1ML VIAL INJ ONE (07:21)
[2024-06-19 07:38] LABS: Basophils # (auto) 0 10 ^3/uL (0-0.2); Basophils % (auto) 0.2 % (0.0-2.0); Eosinophils # (auto) 0.2 10 ^3/uL (0-0.8); Eosinophils % (auto) 1.5 % (0.0-7.0); Hematocrit 26.2 % (36.0-46.0); Hemoglobin 8.2 g/dL (12.2-16.2); Lymphocytes # (auto) 1.5 10 ^3/uL (0.4-5.4); Lymphocytes % (auto) 10.8 % (10.0-50.0); Mean Corpuscular Hgb Conc. 31.1 g/dL (32.0-36.0); Mean Corpuscular Volume 74.1 fL (80.0-100.0); Monocytes # (auto) 0.7 10 ^3/uL (0-1.3); Monocytes % (auto) 4.9 % (0.0-12.0); Neutrophils # (auto) 11.5 10 ^3/uL (1.6-8.6); Neutrophils % (auto) 82.6 % (37.0-80.0); Platelet Count (auto) 373 10^3/uL (140-450); Red Blood Cells 3.54 10^6/uL (4.0-5.20); Red Cell Distribution Width 18.4 % (11.8-14.3); White Blood Cell 13.9 10^3/uL (4.4-10.8)
[2024-06-19] MEDS ORDERED: HYDROmorphone HCL 2 MG/ML VL/or syr ONE (07:57)
--- NOTE | 2024-06-19 08:51 | DVHOP2 ---
Operative Report - 2 Report Details Date: 06/19/24 Preop Diagnosis: Appendicitis Postop Diagnosis: Same Surgeon: Michi Minor MD Anesthesiologist: General endotracheal tube with a local fascial block Anesthesia: General, Regional Drains: TORIN drain Consent: The patient was informed of the risks and benefits of the procedure. These include but are not limited to complications of anesthesia, postoperative infection, incomplete relief of symptoms, recurrence of symptoms, damage to blood vessels, nerves and tendons, deep venous thrombosis, pulmonary embolism and possible need for repeat surgery in the future. Complications: None Estimated Blood Loss: 50 mL Findings: Severe inflamed appendicitis Indications for Surgery: Appendicitis Name of Procedure Performed Laparoscopic converted to open appendectomy. Procedure Details Procedure Details: Patient was identified in the preop hold area is being Mrs. Garcia at this point in time she had been consented and preopped by myself she was brought back to the operating room placed in the operating room table in supine position after adequate induction of anesthesia antibiotics and time-out. The abdomen was prepped and draped in normal surgical fashion a incision was made just above the umbilicus using Veress needle technique the abdomen was entered with a needle and insufflated without difficulty. A this point in time 5 mm port was inserted at the site. A 2nd port was then placed in the midline below the umbilicus which was a 15 mm port. A 3rd port was placed above the initial incision. Which was a 5 mm port upon entering the abdomen the appendix was stuck down to the right lower quadrant there was fluid and murky purulent fluid noted in the pelvis this was cultured. The right lower quadrant was then irrigated out well. And dissection was then begun the omentum was then able to be dissected off of the right colon the appendix was visualized at the base however was extremely stuck retro cecal. After S long dissection it was decided that there was better to convert to an open procedure at this point in time the ports were removed a lower midline incision was made. Upon entering the abdomen in the right lower quadrant was dissected the appendix was then able to be brought up into the incision. The appendix was severely swollen the base of the appendix was identified and dissected out the appendix was then amputated with Endo-PERRY stapler. The appendix was then sent off for pathology. The abdomen was irrigated with a L of fluid. A TORIN drain was then placed in the mid umbilicus incision and then placed in the right lower quadrant. His axilla was secured in place with a 0 Prolene suture. The fascia was then closed with looped PDS suture x2. The dermis was reapproximated with the interrupted 2-0 Vicryl sutures skin was then closed at all incisions with shelly. A sterile dressing was applied sponge and needle counts were correct at the end of the procedure patient was taken to the PACU in stable condition. Specimen: Appendix Condition Good Disposition MICHI MINOR Jr., MD Jun 19, 2024 08:51
[2024-06-19] MEDS: HYDROMORPHONE HCL 1 MG/ML INJ IV PRN (09:41)
[2024-06-19] MEDS: LIDOCAINE W/ EPINEPHRINE 1% 20ML VIAL ONE (10:14)
[2024-06-19] MEDS: BUPIVACAINE 0.25% INJ 50ML VIAL ONE (10:14)
[2024-06-19] MEDS: ceFAZolin 1GM/50ML 100 ML IV ONE (10:15)
[2024-06-19] MEDS: ROPIVACAINE 0.5% (5MG/ML) 20ML AMPULE IJ ONE (10:15)
[2024-06-19] MEDS: SUCCINYLCHOLINE CHLORIDE 20 MG/ML 10ML VIAL IV ONE (10:15)
[2024-06-19] MEDS: ACETAMINOPHEN IV 100 ML IV ONE (10:16)
[2024-06-19] MEDS: ONDANSETRON HCL 4 MG/2 ML VIAL IM ONE (10:16)
[2024-06-19 12:25] LABS: Alanine Aminotransferase 15 U/L (7-40); Alkaline Phosphatase 66 U/L (46-116); Anion Gap 10 (5-15); BUN/Creatinine Ratio 9.1 (10.0-20.0); Carbon Dioxide 23 mmol/L (20-31); Chloride 105 mmol/L (98-107); Potassium 3.9 mmol/L (3.5-5.1); Sodium 138 mmol/L (136-145); Total Protein 6.8 g/dL (5.7-8.2)
[2024-06-19 12:26] LABS: Aspartate Aminotransferase 13 U/L (13-40); Bilirubin, Total 0.5 mg/dL (0.2-1.0); Blood Urea Nitrogen 6 mg/dL (9-23); Glucose 108 mg/dL (74-106)
[2024-06-19] MEDS: HYDROmorphone HCL 2 MG/ML VL/or syr IV SCH (18:45)
--- NOTE | 2024-06-19 19:10 | DVHPNRES ---
Progress Note Date Seen: Jun 19, 2024 Resident Creating Document: MULU ORELLANA RESIDENT Has the PT tested + for MRSA If YES, has PT been informed?: No Medical Necessity Reason Pt with a Central, PICC or Fol: No Medical Necessity Reason History and physical 28 y.o female with a Hx of DM, presents to the ED for a chief complaint of non- radiating, diffused abdominal pain, nausea, vomiting, diarrhea that has been ongoing for the past 2 days. Patient endorses on ongoing symptoms following initial unprovoked. Patient reports no recent sick contact, travel, spoiled food intake, or illicit substance use along with any additional relevant or pertinent information. Patient denies any hematemesis, constipation, urinary symptoms, chest pain, fever, chills, or other associated symptoms or modifiers at this time. Patient was seen 2 days ago at this ED, was admitted and discharged yesterday afternoon with the following diagnosed: Abdominal pain unspecified resolved, Nausea vomiting and Acute gastroenteritis. Patient reports she was prescribed medication but when she went to the pharmacy there was no order and is now back today because symptoms have not resolved. Patient notes pain was active upon discharge. Pmhx: DM Pshx: Denies all surgeries Fhx: DM; No stroke, cancer or heart diseases. Shx: No smoking or drinking PN 06/18/2024 Patient seen and examined today at the bed side. She was in such an excruciating pain. Pain mainly located in the upper abdomen. Vitals signs shows evidence of sepsis with fever, tachycardia and leukocytosis. CT abdomen revealed Enlarged appendix to 1.1 cm with periappendiceal fat stranding and fluid can be acute appendicitis. Hepatic steatosis. Surgical consult placed 06/17/2024. Currently pending surgical evaluation. PN: 06/19/2024 Patient was taken to OR today for appendectomy. Laparoscopic converted to open appendectomy.Patient doing better. Fever improved and tachycardia improving. Will keep patient clear liquid diet overnight Subjective Review of Systems Constitutional: Denies fever no chills no feeling of malaise, abdominal pain HEENT: Denies headache, ear pain, ear discharges, conjunctivitis, nasal discharge throat pain Cardiovascular: Denies chest pain, palpitation, orthopnea, PND, or pedal edema Respiratory: Denies shortness of breath, cough cough, sputum production, hemoptysis, GI: Denies abdominal pain, nausea, vomiting, diarrhea, hematemesis, hematochezia, : Denies frequency, urgency, hematuria, Endocrine: Denies unintentional weight gain or weight loss, feeling of hot flashes, Jerson: Denies easy bruising, bleeding disorders, epistaxis Musculoskeletal: Denies joint pains, muscle aches Psych: No evidence of depression, sabina, suicidal ideation Objective vital signs Vital Sign Date Time Temp Pulse Resp B/P (MAP) Pulse Ox O2 Delivery O2 Flow Rate FiO2 06/19/24 17:43 86 16 116/72 06/19/24 17:00 98.2 96 98.2 06/19/24 10:49 Nasal Cannula* 2 28 Total Intake and Output 06/18/24 06/18/24 06/19/24 15:00 23:00 07:00 Intake Total 880 ml Balance 880 ml medications Current Medications Medications Dose Ordered Sig/Lita Route Start Time Stop Time Status Last Admin Dose Admin Piperacillin Sod/ Tazobactam Sod 100 ml @ 100 mls/hr Q6HR IV 06/18/24 00:00 06/19/24 17:43 100 MLS/HR Sodium Chloride 10 ml Q8HR IV 06/17/24 22:00 06/19/24 06:04 10 ML Acetaminophen 650 mg Q6HP PRN PO 06/17/24 15:45 06/18/24 10:39 650 MG Ondansetron HCl 4 mg Q4HP PRN IV 06/17/24 15:45 Pantoprazole Sodium 40 mg DAILY IV 06/18/24 10:00 06/18/24 10:07 40 MG Acetaminophen/ Hydrocodone Bitart 1 tab Q4HP PRN PO 06/17/24 21:15 06/19/24 11:49 1 TAB Hydromorphone HCl 0.25 mg Q4HR IV 06/18/24 10:00 06/19/24 17:43 0.25 MG Sodium Chloride 1,000 ml @ 100 mls/hr Q10H IV 06/18/24 17:45 06/18/24 17:47 100 MLS/HR Examination General Appearance: Alert, Oriented X3, Cooperative, Mild HEENT: Atraumatic, PERRLA, EOMI, Mucous membrane moist/pink Respiratory: Clear to auscultation, Normal air movement Cardiovascular: Regular rate, Normal S1, Normal S2, No murmurs, no chest wall tenderness Abdominal: distention, tenderness, banded in place with a drainage. Extremities: No clubbing, No cyanosis, No edema, Normal pulses, No tenderness/swelling Skin: No rashes, No breakdown, No significant lesion Neuro: Non ambulatory Normal speech, Strength at 5/5 X4 ext, Normal tone, Sensation intact, Cranial nerves 3-12 NL, Reflexes 2+ Psych/Mental Status: Mental status NL, Mood NL laboratory and microbiology Laboratory Tests 06/19/24 11:46 06/19/24 06:16 Test 06/19/24 11:46 Range/Units Serum Glucose 108 H 74-106 mg/dL Microbiology Date/Time Source Procedure Growth Status 06/17/24 13:45 Blood Blood Culture - Preliminary NO GROWTH AFTER 48 HOURS OF INCUBATION. Resulted Problem List/Assessment/Plan Problem List/Assessment/Plan Sepsis due to acute appendicitis --> Zosyn --> fluid --> Dilaudid --> Repeat CBC, BMP in the am Acute appendicitis s/p appendectomy -->Surgery following --> dressing intact --> Clear liquid diet for tonight --> Continue pain management with Dilaudid schedule with norco prn --> Antibiotics Microcytic anemia, likely IRON --> low MCV, high RDW OBESITY GRADE 1 BMI--> 31.2 Hypokalemia --> replaced Asymptomatic UTI ---> antibiotics already on board Care discussed for more than 25 minute: Full code Case and plan discussed + Dr. Hannah Plan discussed with: Patient My Orders My Orders Orders - MULU ORELLANA RESIDENT Procedure Category Date Status Time Electrocardigram EKG 06/19/24 Logged 01:22 Basic Metabolic Panel LAB 06/20/24 Verified 04:00 Complete Blood Count LAB 06/20/24 Verified 04:00 Dietary Evaluation Review Comments: 1. Currently NPO; pt not to go >7 days NPO diet only (Currently Day 1) 2. Rule out infectious causes for diarrhea; if stool tests are negative consider anti-diarrheal medication 3. Consider to monitor/replete lytes to WNL - noted hypokalemia, replacing Expected Outcomes/Goals: Timely diet progression, improved abd pain and GI sx. Date of Service: Jun 19, 2024 Billing Provider: SHAY HANNAH MD Common Visit Codes: [id number] INP/OBS CARE(HIGH) MULU ORELLANA RESIDENT Jun 19, 2024 19:10 SHAY HANNAH MD Jun 20, 2024 22:25
[2024-06-20] VITALS (8 sets, daily range): BP systolic 105–138; BP diastolic 60–84; PULSE 68–100; RESP 16–20; TEMP 97.7–98.6; O2SAT 95–100
[2024-06-20] MEDS: HYDROMORPHONE HCL 1 MG/ML INJ IV ONE (00:15)
[2024-06-20] MEDS ORDERED: HYDROMORPHONE HCL 1 MG/ML INJ IV PRN ×2 (00:15→01:00)
[2024-06-20] MEDS: HYDROmorphone HCL 2 MG/ML VL/or syr IV ONE (01:13)
[2024-06-20] MEDS: HYDROmorphone HCL 2 MG/ML VL/or syr IV PRN (06:02)
--- NOTE | 2024-06-20 07:07 | DVH ---
ABDOMINAL RADIOGRAPH Indication: ABDOMINAL PAIN Technique: Single frontal view of the abdomen was obtained Comparison: None FINDINGS: Lines and tubes: Surgical drain overlies the right lower quadrant. Midline shelly noted. There are dilated small bowel loops. No supine radiographic evidence of pneumoperitoneum. Bony struct ures unremarkable. IMPRESSION: 1. Dilated small bowel loops throughout the abdomen.
[2024-06-20 07:42] LABS: Basophils # (auto) 0 10 ^3/uL (0-0.2); Eosinophils # (auto) 0 10 ^3/uL (0-0.8); Eosinophils % (auto) 0.1 % (0.0-7.0); Neutrophils % (auto) 79.9 % (37.0-80.0); White Blood Cell 11.6 10^3/uL (4.4-10.8)
[2024-06-20 07:44] LABS: Basophils % (auto) 0.2 % (0.0-2.0); Hematocrit 26.6 % (36.0-46.0); Hemoglobin 8.2 g/dL (12.2-16.2); Lymphocytes # (auto) 1.3 10 ^3/uL (0.4-5.4); Mean Corpuscular Hemoglobin 23.1 pg (28.0-32.0); Mean Corpuscular Hgb Conc. 30.7 g/dL (32.0-36.0); Mean Corpuscular Volume 75.2 fL (80.0-100.0); Monocytes % (auto) 8.8 % (0.0-12.0); Neutrophils # (auto) 9.3 10 ^3/uL (1.6-8.6); Nucleated Red Blood Cells % 0.1 %; Platelet Count (auto) 422 10^3/uL (140-450); Red Blood Cells 3.53 10^6/uL (4.0-5.20); Red Cell Distribution Width 18.5 % (11.8-14.3)
[2024-06-20 07:46] LABS: Calcium 9.3 mg/dL (8.7-10.4); Chloride 102 mmol/L (98-107); Sodium 136 mmol/L (136-145)
[2024-06-20 07:47] LABS: Anion Gap 10 (5-15); Carbon Dioxide 24 mmol/L (20-31)
[2024-06-20 07:52] LABS: Glucose 105 mg/dL (74-106)
[2024-06-20 07:56] LABS: Blood Urea Nitrogen 6 mg/dL (9-23)
[2024-06-20] MEDS: ONDANSETRON HCL 4 MG/2 ML VIAL IV PRN (18:47)
--- NOTE | 2024-06-20 19:25 | DVHPNRES ---
Progress Note Date Seen: Jun 20, 2024 Resident Creating Document: MULU ORELLANA RESIDENT Has the PT tested + for MRSA If YES, has PT been informed?: No Medical Necessity Reason Pt with a Central, PICC or Fol: No Medical Necessity Reason History and physical 28 y.o female with a Hx of DM, presents to the ED for a chief complaint of non- radiating, diffused abdominal pain, nausea, vomiting, diarrhea that has been ongoing for the past 2 days. Patient endorses on ongoing symptoms following initial unprovoked. Patient reports no recent sick contact, travel, spoiled food intake, or illicit substance use along with any additional relevant or pertinent information. Patient denies any hematemesis, constipation, urinary symptoms, chest pain, fever, chills, or other associated symptoms or modifiers at this time. Patient was seen 2 days ago at this ED, was admitted and discharged yesterday afternoon with the following diagnosed: Abdominal pain unspecified resolved, Nausea vomiting and Acute gastroenteritis. Patient reports she was prescribed medication but when she went to the pharmacy there was no order and is now back today because symptoms have not resolved. Patient notes pain was active upon discharge. Pmhx: DM Pshx: Denies all surgeries Fhx: DM; No stroke, cancer or heart diseases. Shx: No smoking or drinking PN 06/18/2024 Patient seen and examined today at the bed side. She was in such an excruciating pain. Pain mainly located in the upper abdomen. Vitals signs shows evidence of sepsis with fever, tachycardia and leukocytosis. CT abdomen revealed Enlarged appendix to 1.1 cm with periappendiceal fat stranding and fluid can be acute appendicitis. Hepatic steatosis. Surgical consult placed 06/17/2024. Currently pending surgical evaluation. PN: 06/19/2024 Patient was taken to OR today for appendectomy. Laparoscopic converted to open appendectomy.Patient doing better. Fever improved and tachycardia improving. Will keep patient clear liquid diet overnight PN: 06/20/2024: Patient seen and examined today. She is feeling better and she is able to move about. Incision site is clean and dry. patient tolerating fluid liquid diet. will advance her diet. Poe catheter removed. will follow her CBC closely. patient encourage to ambulated more. Subjective Review of Systems Constitutional: Denies fever no chills no feeling of malaise, mild -mod abdominal pain, HEENT: Denies headache, ear pain, ear discharges, conjunctivitis, nasal discharge throat pain Cardiovascular: Denies chest pain, palpitation, orthopnea, PND, or pedal edema Respiratory: Denies shortness of breath, cough cough, sputum production, hemoptysis, GI: Denies nausea, vomiting, diarrhea, hematemesis, hematochezia, : Denies frequency, urgency, hematuria, Endocrine: Denies unintentional weight gain or weight loss, feeling of hot flashes, Jerson: Denies easy bruising, bleeding disorders, epistaxis Musculoskeletal: Denies joint pains, muscle aches Psych: No evidence of depression, sabina, suicidal ideation Objective vital signs Vital Sign Date Time Temp Pulse Resp B/P (MAP) Pulse Ox O2 Delivery O2 Flow Rate FiO2 06/20/24 19:16 75 18 122/74 06/20/24 16:39 98.4 100 98.4 06/20/24 08:10 Room Air* 0 21 Total Intake and Output 06/19/24 06/19/24 06/20/24 15:00 23:00 07:00 Intake Total 100 ml 640 ml 900 ml Output Total 340 ml 500 ml 850 ml Balance -240 ml 140 ml 50 ml medications Current Medications Medications Dose Ordered Sig/Lita Route Start Time Stop Time Status Last Admin Dose Admin Piperacillin Sod/ Tazobactam Sod 100 ml @ 100 mls/hr Q6HR IV 06/18/24 00:00 06/20/24 18:46 100 MLS/HR Sodium Chloride 10 ml Q8HR IV 06/17/24 22:00 06/20/24 14:13 10 ML Acetaminophen 650 mg Q6HP PRN PO 06/17/24 15:45 06/18/24 10:39 650 MG Ondansetron HCl 4 mg Q4HP PRN IV 06/17/24 15:45 06/20/24 18:47 4 MG Pantoprazole Sodium 40 mg DAILY IV 06/18/24 10:00 06/20/24 11:27 40 MG Acetaminophen/ Hydrocodone Bitart 1 tab Q4HP PRN PO 06/17/24 21:15 06/20/24 03:08 1 TAB Sodium Chloride 1,000 ml @ 100 mls/hr Q10H IV 06/18/24 17:45 06/20/24 06:00 100 MLS/HR Hydromorphone HCl 1 mg Q4H PRN IV 06/20/24 01:00 06/20/24 18:46 1 MG Examination General Appearance: Alert, Oriented X3, Cooperative, No acute distress HEENT: Atraumatic, PERRLA, EOMI, Mucous membrane moist/pink Respiratory: Clear to auscultation, Normal air movement Cardiovascular: Regular rate, Normal S1, Normal S2, No murmurs, no chest wall tenderness Abdominal: NO distention, no tenderness, bowel sounds present, no scars noted Extremities: No clubbing, No cyanosis, No edema, Normal pulses, No tenderness/swelling Skin: No rashes, No breakdown, No significant lesion Neuro: Normal gait, Normal speech, Strength at 5/5 X4 ext, Normal tone, Sensation intact, Cranial nerves 3-12 NL, Reflexes 2+ Psych/Mental Status: Mental status NL, Mood NL laboratory and microbiology Laboratory Tests 06/20/24 06:25 Test 06/20/24 06:25 Range/Units Serum Glucose 105 74-106 mg/dL Microbiology Date/Time Source Procedure Growth Status 06/19/24 07:47 Other Gram Stain - Final Resulted 06/19/24 07:47 Other Anaerobic Culture - Preliminary Resulted 06/19/24 07:47 Other Aerobic Culture - Preliminary Resulted 06/17/24 13:45 Blood Blood Culture - Preliminary NO GROWTH AFTER 72 HOURS OF INCUBATION. Resulted Problem List/Assessment/Plan Problem List/Assessment/Plan Sepsis due to acute appendicitis --> Zosyn --> fluid --> Dilaudid --> Repeat CBC, BMP in the am Acute appendicitis s/p appendectomy -->Surgery following --> dressing intact --> Clear liquid diet for tonight --> Continue pain management with Dilaudid schedule with [place] prn --> Antibiotics --> Encourage patient to ambulate --> Advance diet Microcytic anemia, likely IRON --> low MCV, high RDW OBESITY GRADE 1 BMI--> 31.2 Hypokalemia --> replaced Asymptomatic UTI ---> antibiotics already on board Care discussed for more than 25 minute: Full code Case and plan discussed + Dr. Mansoor Owens discussed with: Patient My Orders My Orders Orders - MULU ORELLANA RESIDENT Procedure Category Date Status Time D/C Deepika CARVER 06/20/24 In Process 08:10 Dietary Evaluation Review Comments: 1. Currently NPO; pt not to go >7 days NPO diet only (Currently Day 1) 2. Rule out infectious causes for diarrhea; if stool tests are negative consider anti-diarrheal medication 3. Consider to monitor/replete lytes to WNL - noted hypokalemia, replacing Expected Outcomes/Goals: Timely diet progression, improved abd pain and GI sx. Date of Service: Jun 20, 2024 Billing Provider: SHAY HANNAH MD Common Visit Codes: [id number] INP/OBS CARE(HIGH) MULU ORELLANA RESIDENT Jun 20, 2024 19:25 SHAY HANNAH MD Jun 21, 2024 20:47
[2024-06-21] VITALS (8 sets, daily range): BP systolic 97–151; BP diastolic 62–83; PULSE 91–99; RESP 16–20; TEMP 97.9–99; O2SAT 95–100
[2024-06-21 08:12] LABS: Chloride 100 mmol/L (98-107); Sodium 137 mmol/L (136-145)
[2024-06-21 08:13] LABS: Anion Gap 10 (5-15); Calcium 9.1 mg/dL (8.7-10.4); Carbon Dioxide 27 mmol/L (20-31)
[2024-06-21 08:18] LABS: Glucose 78 mg/dL (74-106)
[2024-06-21 08:19] LABS: BUN/Creatinine Ratio 10.6 (10.0-20.0)
[2024-06-21 08:21] LABS: Blood Urea Nitrogen 7 mg/dL (9-23)
[2024-06-21 08:22] LABS: Eosinophils # (auto) 0.2 10 ^3/uL (0-0.8); Nucleated Red Blood Cells % 0.2 %; Red Cell Distribution Width 18.5 % (11.8-14.3); White Blood Cell 9.6 10^3/uL (4.4-10.8)
[2024-06-21 08:24] LABS: Basophils # (auto) 0.1 10 ^3/uL (0-0.2); Basophils % (auto) 0.5 % (0.0-2.0); Eosinophils % (auto) 2.1 % (0.0-7.0); Hematocrit 26.7 % (36.0-46.0); Hemoglobin 8.3 g/dL (12.2-16.2); Lymphocytes # (auto) 1.7 10 ^3/uL (0.4-5.4); Lymphocytes % (auto) 17.2 % (10.0-50.0); Mean Corpuscular Hemoglobin 22.6 pg (28.0-32.0); Mean Corpuscular Volume 72.7 fL (80.0-100.0); Monocytes # (auto) 0.7 10 ^3/uL (0-1.3); Monocytes % (auto) 6.8 % (0.0-12.0); Neutrophils # (auto) 7.1 10 ^3/uL (1.6-8.6); Neutrophils % (auto) 73.4 % (37.0-80.0); Platelet Count (auto) 476 10^3/uL (140-450); Red Blood Cells 3.67 10^6/uL (4.0-5.20)
--- NOTE | 2024-06-21 08:41 | DVHPN2 ---
Progress Note Date Seen: Jun 21, 2024 Has the PT tested + for MRSA If YES, has PT been informed?: No Medical Necessity Reason Pt with a Central, PICC or Fol: No Subjective Patient reports: Feels better, Other (Able to tolerate liquids yesterday. Difficulty getting out of bed to the bathroom.) Changes from previous H/P or p: No Changes Objective vital signs Vital Sign Date Time Temp Pulse Resp B/P (MAP) Pulse Ox O2 Delivery O2 Flow Rate FiO2 06/21/24 08:16 94 16 139/83 06/21/24 05:00 98.5 99 98.5 06/20/24 20:00 Room Air* 0 21 Total Intake and Output 06/20/24 06/20/24 06/21/24 15:00 23:00 07:00 Intake Total 200 ml 1100 ml 800 ml Output Total 40 ml Balance 200 ml 1100 ml 760 ml medications Current Medications Medications Dose Ordered Sig/Lita Route Start Time Stop Time Status Last Admin Dose Admin Piperacillin Sod/ Tazobactam Sod 100 ml @ 100 mls/hr Q6HR IV 06/18/24 00:00 06/21/24 05:59 100 MLS/HR Sodium Chloride 10 ml Q8HR IV 06/17/24 22:00 06/21/24 05:56 10 ML Acetaminophen 650 mg Q6HP PRN PO 06/17/24 15:45 06/18/24 10:39 650 MG Ondansetron HCl 4 mg Q4HP PRN IV 06/17/24 15:45 06/20/24 22:55 4 MG Pantoprazole Sodium 40 mg DAILY IV 06/18/24 10:00 06/20/24 11:27 40 MG Acetaminophen/ Hydrocodone Bitart 1 tab Q4HP PRN PO 06/17/24 21:15 06/20/24 03:08 1 TAB Sodium Chloride 1,000 ml @ 100 mls/hr Q10H IV 06/18/24 17:45 06/20/24 06:00 100 MLS/HR Hydromorphone HCl 1 mg Q4H PRN IV 06/20/24 01:00 06/21/24 08:16 1 MG Examination TORIN drain minimal drainage. Abdomen soft appropriate tenderness. laboratory and microbiology Laboratory Tests 06/21/24 06:52 Test 06/21/24 06:52 Range/Units Serum Glucose 78 74-106 mg/dL Microbiology Date/Time Source Procedure Growth Status 06/19/24 07:47 Other Gram Stain - Final Resulted 06/19/24 07:47 Other Anaerobic Culture - Preliminary Resulted 06/19/24 07:47 Other Aerobic Culture - Preliminary Resulted 06/17/24 13:45 Blood Blood Culture - Preliminary NO GROWTH AFTER 72 HOURS OF INCUBATION. Resulted Problem List/Assessment/Plan Problems(with codes): (1) Acute appendicitis Problem List/Assessment/Plan Postop day 2. Status post laparoscopic converted to open appendectomy. Advance diet today out of bed Pain control DC Poe Once medically stable may be discharged we will follow up in the office in one week for TORIN removal Plan discussed with: Patient Dietary Evaluation Review Comments: 1. Currently NPO; pt not to go >7 days NPO diet only (Currently Day 1) 2. Rule out infectious causes for diarrhea; if stool tests are negative consider anti-diarrheal medication 3. Consider to monitor/replete lytes to WNL - noted hypokalemia, replacing Expected Outcomes/Goals: Timely diet progression, improved abd pain and GI sx. RUPALI EDGAR Jr., MD Jun 21, 2024 08:41
--- NOTE | 2024-06-21 12:55 | DVH ---
Date: 06/21/2024 12:20 PM Examination: XY KUB ABDOMEN SINGLE VIEW History: RULE OUT OBSTRUCTION Comparison: XY KUB ABDOMEN SINGLE VIEW on DOS: 06/20/24, XY KUB ABDOMEN SINGLE VIEW on DOS: 06/20/24 TECHNIQUE: Single frontal view of the abdomen was obtained FINDINGS: Lines and tubes: Surgical drain overlies the right lower quadrant. Midline shelly noted. There are dilated small bowel loops. No supine radiographic evidence of pneumoperitoneum. Bony struct ures unremarkable. IMPRESSION: 1. Dilated small bowel loops throughout the abdomen.
[2024-06-21] MEDS: SODIUM CHL 0.9% 50 ML IV SCH (15:30)
[2024-06-21] MEDS: POTASSIUM CHL 20MEQ/50ML 50 ML IV SCH (16:22)
--- NOTE | 2024-06-21 17:19 | DVHPNRES ---
Progress Note Date Seen: Jun 21, 2024 Resident Creating Document: MULU ORELLANA RESIDENT Has the PT tested + for MRSA If YES, has PT been informed?: No Medical Necessity Reason Pt with a Central, PICC or Fol: No Medical Necessity Reason History and physical 28 y.o female with a Hx of DM, presents to the ED for a chief complaint of non- radiating, diffused abdominal pain, nausea, vomiting, diarrhea that has been ongoing for the past 2 days. Patient endorses on ongoing symptoms following initial unprovoked. Patient reports no recent sick contact, travel, spoiled food intake, or illicit substance use along with any additional relevant or pertinent information. Patient denies any hematemesis, constipation, urinary symptoms, chest pain, fever, chills, or other associated symptoms or modifiers at this time. Patient was seen 2 days ago at this ED, was admitted and discharged yesterday afternoon with the following diagnosed: Abdominal pain unspecified resolved, Nausea vomiting and Acute gastroenteritis. Patient reports she was prescribed medication but when she went to the pharmacy there was no order and is now back today because symptoms have not resolved. Patient notes pain was active upon discharge. Pmhx: DM Pshx: Denies all surgeries Fhx: DM; No stroke, cancer or heart diseases. Shx: No smoking or drinking PN 06/18/2024 Patient seen and examined today at the bed side. She was in such an excruciating pain. Pain mainly located in the upper abdomen. Vitals signs shows evidence of sepsis with fever, tachycardia and leukocytosis. CT abdomen revealed Enlarged appendix to 1.1 cm with periappendiceal fat stranding and fluid can be acute appendicitis. Hepatic steatosis. Surgical consult placed 06/17/2024. Currently pending surgical evaluation. PN: 06/19/2024 Patient was taken to OR today for appendectomy. Laparoscopic converted to open appendectomy.Patient doing better. Fever improved and tachycardia improving. Will keep patient clear liquid diet overnight PN: 06/20/2024: Patient seen and examined today. She is feeling better and she is able to move about. Incision site is clean and dry. patient tolerating fluid liquid diet. will advance her diet. Poe catheter removed. will follow her CBC closely. patient encourage to ambulated more. PN;06/21/2024 Patient seen and examined early today. patient is doing well. She has bowel sounds but was not passing gas. K: 3.0 that was replaced. patient encouraged to walk. KUB revealed 1. Dilated small bowel loops throughout the abdomen Patient was seen by the surgeon and recommended that once patient is medically stable maybe discharge and follow up in the office in one week for TORIN removal. Subjective Review of Systems Constitutional: Denies fever no chills no feeling of malaise, mild -mod abdominal pain, HEENT: Denies headache, ear pain, ear discharges, conjunctivitis, nasal discharge throat pain Cardiovascular: Denies chest pain, palpitation, orthopnea, PND, or pedal edema Respiratory: Denies shortness of breath, cough cough, sputum production, hemoptysis, GI: Denies nausea, vomiting, diarrhea, hematemesis, hematochezia; passed gas this evening : Denies frequency, urgency, hematuria, Endocrine: Denies unintentional weight gain or weight loss, feeling of hot flashes, Jerson: Denies easy bruising, bleeding disorders, epistaxis Musculoskeletal: Denies joint pains, muscle aches Psych: No evidence of depression, sabina, suicidal ideation Objective vital signs Vital Sign Date Time Temp Pulse Resp B/P (MAP) Pulse Ox O2 Delivery O2 Flow Rate FiO2 06/21/24 16:30 98.4 94 18 97/68 (78) 97 98.4 06/21/24 08:00 Room Air* 0 21 Total Intake and Output 06/20/24 06/20/24 06/21/24 14:59 22:59 06:59 Intake Total 200 ml 1100 ml 800 ml Output Total 40 ml Balance 200 ml 1100 ml 760 ml medications Current Medications Medications Dose Ordered Sig/Lita Route Start Time Stop Time Status Last Admin Dose Admin Piperacillin Sod/ Tazobactam Sod 100 ml @ 100 mls/hr Q6HR IV 06/18/24 00:00 06/21/24 12:40 100 MLS/HR Sodium Chloride 10 ml Q8HR IV 06/17/24 22:00 06/21/24 14:00 10 ML Acetaminophen 650 mg Q6HP PRN PO 06/17/24 15:45 06/18/24 10:39 650 MG Ondansetron HCl 4 mg Q4HP PRN IV 06/17/24 15:45 06/20/24 22:55 4 MG Pantoprazole Sodium 40 mg DAILY IV 06/18/24 10:00 06/21/24 11:42 40 MG Sodium Chloride 1,000 ml @ 100 mls/hr Q10H IV 06/18/24 17:45 06/21/24 16:11 100 MLS/HR Examination General Appearance: Alert, Oriented X3, Cooperative, No acute distress, A bdominal pain HEENT: Atraumatic, PERRLA, EOMI, Mucous membrane moist/pink Respiratory: Clear to auscultation, Normal air movement Cardiovascular: Regular rate, Normal S1, Normal S2, No murmurs, no chest wall tenderness Abdominal: distention, tenderness, bowel sounds present, bandage clean, drains in place with minimal drainage Extremities: No clubbing, No cyanosis, No edema, Normal pulses, No tenderness/swelling Skin: No rashes, No breakdown, No significant lesion Neuro: Normal gait, Normal speech, Strength at 5/5 X4 ext, Normal tone, Sensation intact, Cranial nerves 3-12 NL, Reflexes 2+ Psych/Mental Status: Mental status NL, Mood NL laboratory and microbiology Laboratory Tests 06/21/24 06:52 Test 06/21/24 06:52 Range/Units Serum Glucose 78 74-106 mg/dL Microbiology Date/Time Source Procedure Growth Status 06/19/24 07:47 Other Gram Stain - Final Resulted 06/19/24 07:47 Other Anaerobic Culture - Preliminary Resulted 06/19/24 07:47 Other Aerobic Culture - Preliminary Resulted 06/17/24 13:45 Blood Blood Culture - Preliminary NO GROWTH AFTER 72 HOURS OF INCUBATION. Resulted Problem List/Assessment/Plan Problem List/Assessment/Plan Sepsis due to acute appendicitis --> Zosyn --> fluid --> Dilaudid --> Repeat CBC, BMP in the am Acute appendicitis s/p appendectomy -->Surgery following --> dressing intact --> Clear liquid diet for tonight --> Continue pain management with Dilaudid schedule with [place] prn --> Antibiotics --> Encourage patient to ambulate --> Advance diet Hypokalemia --> mg checked --> K replaced No bowel movement yet, rule out ileus --> NO passing gas --> Bowel sound present Microcytic anemia, likely IRON --> low MCV, high RDW OBESITY GRADE 1 BMI--> 31.2 Hypokalemia --> replaced Asymptomatic UTI ---> antibiotics already on board Care discussed for more than 18 minute: Full code Case and plan discussed + Dr. Hannah Plan discussed with: Patient My Orders My Orders Orders - MULU ORELLANA RESIDENT Procedure Category Date Status Time Full Liq Diet DIET 06/21/24 Transmitted Breakfast Kub Abdomen Single XY 06/21/24 Resulted View 11:43 Magnesium LAB 06/21/24 Logged 17:14 Dietary Evaluation Review Comments: 1. Currently NPO; pt not to go >7 days NPO diet only (Currently Day 1) 2. Rule out infectious causes for diarrhea; if stool tests are negative consider anti-diarrheal medication 3. Consider to monitor/replete lytes to WNL - noted hypokalemia, replacing Expected Outcomes/Goals: Timely diet progression, improved abd pain and GI sx. Date of Service: Jun 21, 2024 Billing Provider: SHAY HANNAH MD Common Visit Codes: [id number] INP/OBS CARE(HIGH) MULU ORELLANA RESIDENT Jun 21, 2024 17:19 SHAY HANNAH MD Jun 22, 2024 22:07
[2024-06-21] MEDS ORDERED: KETOROLAC TROMETH 30 MG/ML 1ML VIAL IV PRN (18:00)
[2024-06-21] MEDS: HYDROcodone-ACET 5/325MG TAB PO PRN (18:50)
[2024-06-21] MEDS: POTASSIUM EFFERVESENT TAB 25 MEQ PO ONE (19:02)
[2024-06-21] MEDS: POTASSIUM CHLORIDE 80 MEQ, LIDOCAINE 1% (LOCAL ANESTH.) 6 ML in SODIUM CHL 0.9% 500 ML IV ONE (20:00)
[2024-06-21] MEDS: MORPHINE SULFATE INJ 2 MG/ml SYRG IV ONE (21:28)
[2024-06-21] MEDS: MAGNESIUM SULFATE 1GM/100ML 100 ML IV ONE (23:00)
[2024-06-22] VITALS (8 sets, daily range): BP systolic 113–158; BP diastolic 58–98; PULSE 69–99; RESP 16–20; TEMP 97.6–98.9; O2SAT 95–99
[2024-06-22] MEDS: MORPHINE SULFATE INJ 2 MG/ml SYRG IV ONE (05:24)
[2024-06-22] MEDS: GASTROGRAFIN 120 ML SOL ONE (09:22)
[2024-06-22] MEDS: MORPHINE SULFATE INJ 2 MG/ml SYRG IV SCH ×2 (11:35→22:41)
[2024-06-22 13:06] LABS: Basophils # (auto) 0.1 10 ^3/uL (0-0.2); Eosinophils # (auto) 0.3 10 ^3/uL (0-0.8); Nucleated Red Blood Cells % 0.2 %
[2024-06-22 13:07] LABS: Basophils % (auto) 0.4 % (0.0-2.0); Eosinophils % (auto) 2.3 % (0.0-7.0); Hematocrit 27.1 % (36.0-46.0); Hemoglobin 8.4 g/dL (12.2-16.2); Lymphocytes # (auto) 1.6 10 ^3/uL (0.4-5.4); Lymphocytes % (auto) 13.1 % (10.0-50.0); Mean Corpuscular Hemoglobin 22.8 pg (28.0-32.0); Mean Corpuscular Hgb Conc. 30.8 g/dL (32.0-36.0); Monocytes % (auto) 7.6 % (0.0-12.0); Neutrophils # (auto) 9.6 10 ^3/uL (1.6-8.6); Neutrophils % (auto) 76.6 % (37.0-80.0); Platelet Count (auto) 513 10^3/uL (140-450); Red Blood Cells 3.66 10^6/uL (4.0-5.20); White Blood Cell 12.6 10^3/uL (4.4-10.8)
[2024-06-22] MEDS: HYDROcodone-ACET 10/325MG TAB PO ONE (13:16)
[2024-06-22 13:17] LABS: Chloride 103 mmol/L (98-107); Potassium 4.2 mmol/L (3.5-5.1); Sodium 137 mmol/L (136-145)
[2024-06-22 13:18] LABS: Anion Gap 9 (5-15); Calcium 9.8 mg/dL (8.7-10.4); Carbon Dioxide 25 mmol/L (20-31)
[2024-06-22 13:23] LABS: Glucose 85 mg/dL (74-106)
[2024-06-22 13:24] LABS: BUN/Creatinine Ratio 9.1 (10.0-20.0); Blood Urea Nitrogen 6 mg/dL (9-23)
--- NOTE | 2024-06-22 15:42 | DVH ---
Procedure: XY SMALL BOWEL SERIES-W GASTROGRA Reason for study/Clinical History: rule out obstruction Comparison Study: None available at time of dictation. Technique: Single contrast small bowel series performed. FINDINGS/IMPRESSION: Initial finished goods stock clerk radiograph demonstrates nonspecific bowel-gas pattern surgical drain overlying the pelv is. Contrast is identified within the colon by 2 hours. This represents a normal small bowel transit natasha mahoney
--- NOTE | 2024-06-22 21:29 | DVHPNRES ---
Progress Note Date Seen: Jun 22, 2024 Resident Creating Document: MULU ORELLANA RESIDENT Has the PT tested + for MRSA If YES, has PT been informed?: No Medical Necessity Reason Pt with a Central, PICC or Fol: No Medical Necessity Reason History and physical 28 y.o female with a Hx of DM, presents to the ED for a chief complaint of non- radiating, diffused abdominal pain, nausea, vomiting, diarrhea that has been ongoing for the past 2 days. Patient endorses on ongoing symptoms following initial unprovoked. Patient reports no recent sick contact, travel, spoiled food intake, or illicit substance use along with any additional relevant or pertinent information. Patient denies any hematemesis, constipation, urinary symptoms, chest pain, fever, chills, or other associated symptoms or modifiers at this time. Patient was seen 2 days ago at this ED, was admitted and discharged yesterday afternoon with the following diagnosed: Abdominal pain unspecified resolved, Nausea vomiting and Acute gastroenteritis. Patient reports she was prescribed medication but when she went to the pharmacy there was no order and is now back today because symptoms have not resolved. Patient notes pain was active upon discharge. Pmhx: DM Pshx: Denies all surgeries Fhx: DM; No stroke, cancer or heart diseases. Shx: No smoking or drinking PN 06/18/2024 Patient seen and examined today at the bed side. She was in such an excruciating pain. Pain mainly located in the upper abdomen. Vitals signs shows evidence of sepsis with fever, tachycardia and leukocytosis. CT abdomen revealed Enlarged appendix to 1.1 cm with periappendiceal fat stranding and fluid can be acute appendicitis. Hepatic steatosis. Surgical consult placed 06/17/2024. Currently pending surgical evaluation. PN: 06/19/2024 Patient was taken to OR today for appendectomy. Laparoscopic converted to open appendectomy.Patient doing better. Fever improved and tachycardia improving. Will keep patient clear liquid diet overnight PN: 06/20/2024: Patient seen and examined today. She is feeling better and she is able to move about. Incision site is clean and dry. patient tolerating fluid liquid diet. will advance her diet. Poe catheter removed. will follow her CBC closely. patient encourage to ambulated more. PN;06/21/2024 Patient seen and examined early today. patient is doing well. She has bowel sounds but was not passing gas. K: 3.0 that was replaced. patient encouraged to walk. KUB revealed 1. Dilated small bowel loops throughout the abdomen Patient was seen by the surgeon and recommended that once patient is medically stable maybe discharge and follow up in the office in one week for TORIN removal. PN 06/22/2024 Patient is seen and examined by the bedside. Patient doing better today she is passing gas; however no bowel movement yet. This is also likely due to the fat that patient has not been eating. She has only been on full liquid diet. Gastrografin showed Initial artist consultant radiograph demonstrates nonspecific bowel-gas pattern surgical drain overlying the pelvis. Contrast is identified within the colon by 2 hours. This represents a normal small bowel transit time. Patient was seen today by the surgeon and according to the patient the surgery mentioned that maybe her wound site is infected. Currently pending for the surgical note. NOT yet ready. so we will wait and keep patient overnight. Also patient has WBCs seems to be trending upwards WBC 12. order for wound consult Subjective Review of Systems Constitutional: Denies fever no chills no feeling of malaise, Mild distress HEENT: Denies headache, ear pain, ear discharges, conjunctivitis, nasal discharge throat pain Cardiovascular: Denies chest pain, palpitation, orthopnea, PND, or pedal edema Respiratory: Denies shortness of breath, cough cough, sputum production, hemoptysis, GI: abdominal pain, NOnausea, vomiting, diarrhea, hematemesis, hematochezia, : Denies frequency, urgency, hematuria, Endocrine: Denies unintentional weight gain or weight loss, feeling of hot flashes, Jerson: Denies easy bruising, bleeding disorders, epistaxis Musculoskeletal: Denies joint pains, muscle aches Psych: No evidence of depression, sabina, suicidal ideation Objective vital signs Vital Sign Date Time Temp Pulse Resp B/P (MAP) Pulse Ox O2 Delivery O2 Flow Rate FiO2 06/22/24 19:35 18 95 Room Air* 0 21 06/22/24 18:44 82 120/72 06/22/24 16:49 98.9 98.9 Total Intake and Output 06/21/24 06/21/24 06/22/24 15:00 23:00 07:00 Intake Total 200 ml 1440 ml 1200 ml Output Total 2100 ml 900 ml Balance 200 ml -660 ml 300 ml medications Current Medications Medications Dose Ordered Sig/Lita Route Start Time Stop Time Status Last Admin Dose Admin Piperacillin Sod/ Tazobactam Sod 100 ml @ 100 mls/hr Q6HR IV 06/18/24 00:00 06/22/24 18:14 100 MLS/HR Sodium Chloride 10 ml Q8HR IV 06/17/24 22:00 06/22/24 14:22 10 ML Acetaminophen 650 mg Q6HP PRN PO 06/17/24 15:45 06/18/24 10:39 650 MG Ondansetron HCl 4 mg Q4HP PRN IV 06/17/24 15:45 06/20/24 22:55 4 MG Pantoprazole Sodium 40 mg DAILY IV 06/18/24 10:00 06/22/24 08:55 40 MG Sodium Chloride 1,000 ml @ 100 mls/hr Q10H IV 06/18/24 17:45 06/21/24 16:11 100 MLS/HR Acetaminophen/ Hydrocodone Bitart 1 tab Q4HPRN PRN PO 06/21/24 18:45 06/22/24 20:17 1 TAB Morphine Sulfate 2 mg Q4HPRN IV 06/22/24 10:00 06/22/24 18:14 2 MG Examination General Appearance: Alert, Oriented X3, Cooperative, Mild- moderate acute distress, Abdominal pain HEENT: Atraumatic, PERRLA, EOMI, Mucous membrane moist/pink Respiratory: Clear to auscultation, Normal air movement Cardiovascular: Regular rate, Normal S1, Normal S2, No murmurs, no chest wall tenderness Abdominal: Distention, tenderness, bowel sounds present, incision site red, shelly seen drains present Extremities: No clubbing, No cyanosis, No edema, Normal pulses, No tenderness/swelling Skin: No rashes, No breakdown, No significant lesion Neuro: Normal gait, Normal speech, Strength at 5/5 X4 ext, Normal tone, Sensation intact, Cranial nerves 3-12 NL, Reflexes 2+ Psych/Mental Status: Mental status NL, Mood NL laboratory and microbiology Laboratory Tests 06/22/24 12:55 Test 06/22/24 12:55 Range/Units Serum Glucose 85 74-106 mg/dL Microbiology Date/Time Source Procedure Growth Status 06/19/24 07:47 Other Gram Stain - Final Resulted 06/19/24 07:47 Other Anaerobic Culture - Preliminary Resulted 06/19/24 07:47 Other Aerobic Culture - Preliminary Resulted 06/17/24 13:45 Blood Blood Culture - Final NO GROWTH AFTER 5 DAYS OF INCUBATION. Complete Problem List/Assessment/Plan Problem List/Assessment/Plan Sepsis due to acute appendicitis --> Zosyn --> fluid --> Repeat CBC, BMP in the am Acute appendicitis s/p appendectomy -->Surgery following --> dressing intact --> Clear liquid diet for tonight --> Antibiotics --> Pain management ( [place] and morphine) --> Encourage patient to ambulate --> Advance diet --> wbc trending up: 12.6 06/22/2024 Rule out incision site infection --> Incision site red --> wound consult Hypokalemia--> IMPROVED --> mg checked --> K replaced ileus ruled out --> Passing gas s --> Bowel sound present Microcytic anemia, likely IRON --> low MCV, high RDW OBESITY GRADE 1 BMI--> 31.2 Asymptomatic UTI ---> antibiotics already on board Care discussed for more than 18 minute: Full code Case and plan discussed + Dr. Hannah Plan discussed with: Patient My Orders My Orders Orders - MULU ORELLANA RESIDENT Procedure Category Date Status Time Morphine Sulfate PHA 06/22/24 In Process Injection 10:00 Small Bowel Series-W XY 06/22/24 Resulted Gastrogra 08:39 * Wound Consult CONS 06/22/24 Transmitted Complete Blood Count LAB 06/23/24 Verified 04:00 Basic Metabolic Panel LAB 06/23/24 Verified 04:00 Dietary Evaluation Review Comments: 1. Currently NPO; pt not to go >7 days NPO diet only (Currently Day 1) 2. Rule out infectious causes for diarrhea; if stool tests are negative consider anti-diarrheal medication 3. Consider to monitor/replete lytes to WNL - noted hypokalemia, replacing Expected Outcomes/Goals: Timely diet progression, improved abd pain and GI sx. Date of Service: Jun 22, 2024 Billing Provider: SHAY HANNAH MD Common Visit Codes: [id number] INP/OBS CARE(HIGH) MULU ORELLANA Jun 22, 2024 21:29 SHAY HANNAH MD Jun 22, 2024 22:15
[2024-06-23] VITALS (8 sets, daily range): BP systolic 120–132; BP diastolic 68–82; PULSE 66–90; RESP 14–18; TEMP 98–98.9; O2SAT 95–97
[2024-06-23] MEDS: MORPHINE SULFATE INJ 2 MG/ml SYRG IV PRN (04:39)
[2024-06-23 06:07] LABS: Basophils # (auto) 0.1 10 ^3/uL (0-0.2); Basophils % (auto) 0.5 % (0.0-2.0); Eosinophils # (auto) 0.4 10 ^3/uL (0-0.8); Monocytes # (auto) 0.9 10 ^3/uL (0-1.3)
[2024-06-23 06:10] LABS: Eosinophils % (auto) 3.6 % (0.0-7.0); Hematocrit 26.7 % (36.0-46.0); Hemoglobin 8.4 g/dL (12.2-16.2); Lymphocytes # (auto) 2.2 10 ^3/uL (0.4-5.4); Lymphocytes % (auto) 17.8 % (10.0-50.0); Mean Corpuscular Hgb Conc. 31.5 g/dL (32.0-36.0); Mean Corpuscular Volume 72.8 fL (80.0-100.0); Monocytes % (auto) 6.9 % (0.0-12.0); Neutrophils # (auto) 8.9 10 ^3/uL (1.6-8.6); Neutrophils % (auto) 71.2 % (37.0-80.0); Nucleated Red Blood Cells % 0.2 %; Platelet Count (auto) 551 10^3/uL (140-450); Red Blood Cells 3.67 10^6/uL (4.0-5.20); White Blood Cell 12.5 10^3/uL (4.4-10.8)
[2024-06-23 06:26] LABS: Anion Gap 10 (5-15); Carbon Dioxide 26 mmol/L (20-31); Chloride 103 mmol/L (98-107); Potassium 3.7 mmol/L (3.5-5.1); Sodium 139 mmol/L (136-145)
[2024-06-23 06:27] LABS: Calcium 9.6 mg/dL (8.7-10.4)
[2024-06-23 06:32] LABS: BUN/Creatinine Ratio 11.8 (10.0-20.0); Glucose 75 mg/dL (74-106)
[2024-06-23 06:49] LABS: Blood Urea Nitrogen 8 mg/dL (9-23)
--- NOTE | 2024-06-23 10:53 | DVHPN2 ---
Changes from previous H/P or p: No Changes Objective Vitals Vital Signs Date Time Temp Pulse Resp B/P (MAP) Pulse Ox O2 Delivery O2 Flow Rate FiO2 06/23/24 09:51 78 20 125/70 06/23/24 08:30 98.9 96 98.9 06/23/24 08:09 Room Air* 0 21 Intake/Output Intake and Output 06/23/24 07:00 Intake Total 2315 ml Output Total 930 ml Balance 1385 ml Intake Oral 2015 ml IV Total 300 ml Output Urine Total 900 ml Drainage Total 25 ml Other 5 ml # Bowel Movements 3 Medications Current Medications Medications Dose Ordered Sig/Lita Route Start Time Stop Time Status Last Admin Dose Admin Piperacillin Sod/ Tazobactam Sod 100 ml @ 100 mls/hr Q6HR IV 06/18/24 00:00 06/23/24 06:05 100 MLS/HR Sodium Chloride 10 ml Q8HR IV 06/17/24 22:00 06/23/24 05:56 10 ML Acetaminophen 650 mg Q6HP PRN PO 06/17/24 15:45 06/18/24 10:39 650 MG Ondansetron HCl 4 mg Q4HP PRN IV 06/17/24 15:45 06/20/24 22:55 4 MG Pantoprazole Sodium 40 mg DAILY IV 06/18/24 10:00 06/23/24 09:21 40 MG Sodium Chloride 1,000 ml @ 100 mls/hr Q10H IV 06/18/24 17:45 06/23/24 07:54 100 MLS/HR Acetaminophen/ Hydrocodone Bitart 1 tab Q4HPRN PRN PO 06/21/24 18:45 06/23/24 07:53 1 TAB Morphine Sulfate 2 mg Q4HP PRN IV 06/23/24 04:45 06/23/24 09:21 2 MG Laboratory Results Laboratory Tests 06/23/24 04:53 Chemistry Test 06/22/24 12:55 06/23/24 04:53 Calcium Level 9.8 mg/dL (8.7-10.4) 9.6 mg/dL (8.7-10.4) Magnesium Level 2.0 mg/dL (1.6-2.6) Urinalysis Test 06/17/24 12:36 Urine Color [place] (Yellow) H Urine Clarity Turbid (Clear) H Urine pH 6.5 (5.0-9.0) Urine Specific [place] 1.030 (1.001-1.035) Urine Protein 2+ (Negative) H Urine Ketones 1+ (Negative) H Urine Blood Negative /uL (Negative) Urine Nitrite Negative (Negative) Urine Bilirubin 1+ (Negative) H Urine Urobilinogen 6 mg/dL (Negative) Urine Leukocyte Esterase Trace /uL (Negative) Urine RBC 10 /hpf (0 - 4) Urine Microscopic WBC 9 /HPF (0-5) H Urine Squamous Epithelial Cells Mod /hpf (<5) Urine Bacteria Few /hpf (None Seen) H Urine Mucus Few (None Seen) Urine Glucose Normal mg/dL (Normal) Microbiology Microbiology Date/Time Source Procedure Growth Status 06/19/24 07:47 Other Gram Stain - Final Resulted 06/19/24 07:47 Other Anaerobic Culture - Preliminary Resulted 06/19/24 07:47 Other Aerobic Culture - Preliminary Resulted 06/17/24 13:45 Blood Blood Culture - Final NO GROWTH AFTER 5 DAYS OF INCUBATION. Complete Labs and/or images reviewed: Labs reviewed by me, Image(s) reviewed by me Assessment/Plan Assessment/Plan Covering for resident physician Sepsis secondary to acute appendicitis Acute appendicitis status post laparoscopic appendectomy Acute hypokalemia Anemia Continue current management antibiotic Zosyn Plan discussed with: Patient Date of Service: Jun 23, 2024 Billing Provider: ALYSSA BARAJAS MD Common Visit Codes: [id number] INP/OBS CARE(HIGH) ALYSSA BARAJAS MD Jun 23, 2024 10:53
--- NOTE | 2024-06-23 11:28 | DVHPN2 ---
Progress Note Date Seen: Jun 23, 2024 Has the PT tested + for MRSA If YES, has PT been informed?: No Medical Necessity Reason Pt with a Central, PICC or Fol: No Objective vital signs Vital Sign Date Time Temp Pulse Resp B/P (MAP) Pulse Ox O2 Delivery O2 Flow Rate FiO2 06/23/24 09:51 78 20 125/70 06/23/24 08:30 98.9 96 98.9 06/23/24 08:09 Room Air* 0 21 Total Intake and Output 06/22/24 06/22/24 06/23/24 15:00 23:00 07:00 Intake Total 200 ml 1070 ml 1045 ml Output Total 25 ml 905 ml Balance 175 ml 165 ml 1045 ml medications Current Medications Medications Dose Ordered Sig/Lita Route Start Time Stop Time Status Last Admin Dose Admin Piperacillin Sod/ Tazobactam Sod 100 ml @ 100 mls/hr Q6HR IV 06/18/24 00:00 06/23/24 06:05 100 MLS/HR Sodium Chloride 10 ml Q8HR IV 06/17/24 22:00 06/23/24 05:56 10 ML Acetaminophen 650 mg Q6HP PRN PO 06/17/24 15:45 06/18/24 10:39 650 MG Ondansetron HCl 4 mg Q4HP PRN IV 06/17/24 15:45 06/20/24 22:55 4 MG Pantoprazole Sodium 40 mg DAILY IV 06/18/24 10:00 06/23/24 09:21 40 MG Sodium Chloride 1,000 ml @ 100 mls/hr Q10H IV 06/18/24 17:45 06/23/24 07:54 100 MLS/HR Acetaminophen/ Hydrocodone Bitart 1 tab Q4HPRN PRN PO 06/21/24 18:45 06/23/24 07:53 1 TAB Morphine Sulfate 2 mg Q4HP PRN IV 06/23/24 04:45 06/23/24 09:21 2 MG laboratory and microbiology Laboratory Tests 06/23/24 04:53 Test 06/23/24 04:53 Range/Units Serum Glucose 75 74-106 mg/dL Problem List/Assessment/Plan Problem List/Assessment/Plan 06/23/24 passing flatus, nurse reports three bowel movements yesterday,patient denies.; abdomen non distended, patient does not allow touching of abdomen, with the slightest touch complains of being rough as hell". afebrile, normotensive, tolerating po without nausea or vomiting, em drainage non purulent. patiuent very reluctant top move and has only walked in room. Explained importance of ambulation., she could possibly be discharged in the morning tomorrow with po antibiotics Plan discussed with: Patient, Son Dietary Evaluation Review Comments: 1. Currently NPO; pt not to go >7 days NPO diet only (Currently Day 1) 2. Rule out infectious causes for diarrhea; if stool tests are negative consider anti-diarrheal medication 3. Consider to monitor/replete lytes to WNL - noted hypokalemia, replacing Expected Outcomes/Goals: Timely diet progression, improved abd pain and GI sx. PATRICA GOULD MD Jun 23, 2024 11:28
--- NOTE | 2024-06-23 11:33 | DVHINCON2 ---
Date of service: Jun 23, 2024 Family History: Depression G8 MOTHER FHx: schizophrenia G8 FATHER Hypertension G8 MOTHER Allergies: Coded Allergies: Ibuprofen (Verified Allergy, Unknown, 08/27/23) Home Meds Active Scripts Pantoprazole Sodium Sesquihydr (Pantoprazole Sodium) 40 Mg Tab, 40 MG PO DAILY for 10 Days, #10 TAB Prov:ESTIVEN PAVON 08/29/23 Current Medications Current Medications Medications (Trade) Dose Ordered Sig/Lita Route PRN Reason Start Time Stop Time Status Last Admin Morphine Sulfate 2 mg Q4H IV 06/22/24 22:15 06/23/24 04:31 DC 06/22/24 22:41 Morphine Sulfate 2 mg Q4HP PRN IV SEVERE PAIN (7-10 PAIN SCALE) 06/23/24 04:45 06/23/24 09:21 Vital Signs Vital Signs Date Time Temp Pulse Resp B/P (MAP) Pulse Ox O2 Delivery O2 Flow Rate FiO2 06/23/24 09:51 78 20 125/70 06/23/24 08:30 98.9 96 98.9 06/23/24 08:09 Room Air* 0 21 Labs/Diagnostic Data Labs Test 06/23/24 04:53 06/22/24 12:55 06/19/24 11:46 06/18/24 08:34 Range/Units White Blood Count 12.5 H 4.4-10.8 10^3/uL Red Blood Count 3.67 L 4.0-5.20 10^6/uL Hemoglobin 8.4 L 12.2-16.2 g/dL Hematocrit 26.7 L 36.0-46.0 % Mean Corpuscular Volume 72.8 L 80.0-100.0 fL Mean Corpuscular Hemoglobin 23.0 L 28.0-32.0 pg Mean Corpuscular Hemoglobin Concent 31.5 L 32.0-36.0 g/dL Red Cell Distribution Width 19.0 H 11.8-14.3 % Platelet Count 551 H 140-450 10^3/uL Mean Platelet Volume 8.0 6.9-10.8 fL Neutrophils (%) (Auto) 71.2 37.0-80.0 % Lymphocytes (%) (Auto) 17.8 10.0-50.0 % Monocytes (%) (Auto) 6.9 0.0-12.0 % Eosinophils (%) (Auto) 3.6 0.0-7.0 % Basophils (%) (Auto) 0.5 0.0-2.0 % Neutrophils # (Auto) 8.9 H 1.6-8.6 10 ^3/uL Lymphocytes # (Auto) 2.2 0.4-5.4 10 ^3/uL Monocytes # (Auto) 0.9 0-1.3 10 ^3/uL Eosinophils # (Auto) 0.4 0-0.8 10 ^3/uL Basophils # (Auto) 0.1 0-0.2 10 ^3/uL Nucleated Red Blood Cells 0.2 % Sodium Level 139 136-145 mmol/L Potassium Level 3.7 3.5-5.1 mmol/L Chloride Level 103 98-107 mmol/L Carbon Dioxide Level 26 20-31 mmol/L Anion Gap 10 5-15 Blood Urea Nitrogen 8 L 9-23 mg/dL Creatinine 0.68 0.550-1.02 mg/dL Glomerular Filtration Rate Calc 120 >90 mL/min BUN/Creatinine Ratio 11.8 10.0-20.0 Serum Glucose 75 74-106 mg/dL Calcium Level 9.6 8.7-10.4 mg/dL Magnesium Level 2.0 1.6-2.6 mg/dL Total Bilirubin 0.5 0.2-1.0 mg/dL Aspartate Amino Transferase (AST) 13 13-40 U/L Alanine Aminotransferase (ALT) 15 7-40 U/L Alkaline Phosphatase 66 46-116 U/L Total Protein 6.8 5.7-8.2 g/dL Albumin 4.0 3.2-4.8 g/dL Prothrombin Time 10.9 9.3-11.8 sec Prothrombin Time INR 1.03 0.9-1.15 Activated Partial Thromboplast Time 25.9 24.5-34.5 SEC Hemoglobin A1c 5.4 <5.7 % A1C Beta HCG, Quantitative 0.5 L 1.5-4.2 mIU/mL Test 06/17/24 13:45 06/17/24 12:36 Range/Units Lactic Acid Level 1.4 0.4-2.0 mmol/L Urine Color [place] H Yellow Urine Clarity Turbid H Clear Urine pH 6.5 5.0-9.0 Urine Specific [place] 1.030 1.001-1.035 Urine Protein 2+ H Negative Urine Ketones 1+ H Negative Urine Blood Negative Negative /uL Urine Nitrite Negative Negative Urine Bilirubin 1+ H Negative Urine Urobilinogen 6 Negative mg/dL Urine Leukocyte Esterase Trace Negative /uL Urine RBC 10 0 - 4 /hpf Urine Microscopic WBC 9 H 0-5 /HPF Urine Squamous Epithelial Cells Mod <5 /hpf Urine Bacteria Few H None Seen /hpf Urine Mucus Few None Seen Urine Glucose Normal Normal mg/dL Microbiology Date/Time Source Procedure Growth Status 06/19/24 07:47 Other Gram Stain - Final Resulted 06/19/24 07:47 Other Anaerobic Culture - Preliminary Resulted 06/19/24 07:47 Other Aerobic Culture - Preliminary Resulted 06/17/24 13:45 Blood Blood Culture - Final NO GROWTH AFTER 5 DAYS OF INCUBATION. Complete Assessment 06/23/24 gastrografin small bowel x ray shows normal contrast transit with contrast in large bowel within two hours. afebrile, normotensive, , must ambulate more, explained to patient in detail Plan discussed with: Patient, Son PATRICA GOULD MD Jun 23, 2024 11:33
[2024-06-23] MEDS: DOCUSATE SOD 100 MG CAP PO SCH (21:39)
[2024-06-24 01:00] VITALS: BP 124/69; PULSE 74; RESP 17; TEMP 98; O2SAT 96
[2024-06-24 05:00] VITALS: BP 104/54; PULSE 72; RESP 17; TEMP 98.2; O2SAT 94
[2024-06-24 08:30] VITALS: BP 133/80; PULSE 95; RESP 16; TEMP 97.8; O2SAT 100
[2024-06-24 08:57] LABS: Basophils # (auto) 0.1 10 ^3/uL (0-0.2); Basophils % (auto) 0.4 % (0.0-2.0); Eosinophils # (auto) 0.4 10 ^3/uL (0-0.8)
[2024-06-24 08:59] LABS: Eosinophils % (auto) 3.3 % (0.0-7.0); Hemoglobin 8.8 g/dL (12.2-16.2); Lymphocytes # (auto) 3.2 10 ^3/uL (0.4-5.4); Lymphocytes % (auto) 24.5 % (10.0-50.0); Mean Corpuscular Hemoglobin 22.6 pg (28.0-32.0); Mean Corpuscular Hgb Conc. 31.6 g/dL (32.0-36.0); Mean Corpuscular Volume 71.6 fL (80.0-100.0); Monocytes % (auto) 7.5 % (0.0-12.0); Neutrophils # (auto) 8.3 10 ^3/uL (1.6-8.6); Neutrophils % (auto) 64.3 % (37.0-80.0); Nucleated Red Blood Cells % 0.3 %; Platelet Count (auto) 630 10^3/uL (140-450); Red Blood Cells 3.91 10^6/uL (4.0-5.20); Red Cell Distribution Width 19.1 % (11.8-14.3); White Blood Cell 12.9 10^3/uL (4.4-10.8)
[2024-06-24 09:00] LABS: Chloride 102 mmol/L (98-107); Sodium 137 mmol/L (136-145)
[2024-06-24 09:01] LABS: Anion Gap 10 (5-15); Carbon Dioxide 25 mmol/L (20-31)
[2024-06-24 09:02] LABS: Calcium 9.8 mg/dL (8.7-10.4)
[2024-06-24 09:06] LABS: Glucose 82 mg/dL (74-106)
[2024-06-24 09:07] LABS: BUN/Creatinine Ratio 11.8 (10.0-20.0); Blood Urea Nitrogen 8 mg/dL (9-23)
--- NOTE | 2024-06-24 10:36 | DVHPN2 ---
Progress Note Date Seen: Jun 24, 2024 Has the PT tested + for MRSA If YES, has PT been informed?: No Medical Necessity Reason Pt with a Central, PICC or Fol: No Objective vital signs Vital Sign Date Time Temp Pulse Resp B/P (MAP) Pulse Ox O2 Delivery O2 Flow Rate FiO2 06/24/24 08:30 97.8 95 16 133/80 (97) 100 97.8 06/24/24 08:00 Room Air* 0 21 Total Intake and Output 06/23/24 06/23/24 06/24/24 14:59 22:59 06:59 Intake Total 100 ml 700 ml Output Total 25 ml Balance -25 ml 100 ml 700 ml medications Current Medications Medications Dose Ordered Sig/Lita Route Start Time Stop Time Status Last Admin Dose Admin Piperacillin Sod/ Tazobactam Sod 100 ml @ 100 mls/hr Q6HR IV 06/18/24 00:00 06/24/24 05:39 100 MLS/HR Sodium Chloride 10 ml Q8HR IV 06/17/24 22:00 06/24/24 05:39 10 ML Acetaminophen 650 mg Q6HP PRN PO 06/17/24 15:45 06/18/24 10:39 650 MG Ondansetron HCl 4 mg Q4HP PRN IV 06/17/24 15:45 06/20/24 22:55 4 MG Pantoprazole Sodium 40 mg DAILY IV 06/18/24 10:00 06/24/24 09:00 40 MG Sodium Chloride 1,000 ml @ 100 mls/hr Q10H IV 06/18/24 17:45 06/23/24 18:27 100 MLS/HR Acetaminophen/ Hydrocodone Bitart 1 tab Q4HPRN PRN PO 06/21/24 18:45 06/24/24 08:59 1 TAB Morphine Sulfate 2 mg Q4HP PRN IV 06/23/24 04:45 06/24/24 05:40 2 MG Docusate Sodium 100 mg BID PO 06/23/24 22:00 06/24/24 08:59 100 MG laboratory and microbiology Laboratory Tests 06/24/24 08:29 Test 06/24/24 08:29 Range/Units Serum Glucose 82 74-106 mg/dL Problem List/Assessment/Plan Problem List/Assessment/Plan 06/23/24 passing flatus, nurse reports three bowel movements yesterday,patient denies.; abdomen non distended, patient does not allow touching of abdomen, with the slightest touch complains of being rough as hell". afebrile, normotensive, tolerating po without nausea or vomiting, torin drainage non purulent. patiuent very reluctant top move and has only walked in room. Explained importance of ambulation., she could possibly be discharged in the morning tomorrow with po antibiotics 06/24/24 PASSING FL;ATUS, NO NAUSEA OR VOMITING, AFEBRILE, NORMAL BP. FROM SURGICAL POINT OF VIEW SHE IS CLEARED TO BE DISCHARGED WITH PO ANTIBIOTICS, TO F/O OUTPATIENT WITH PRIMARY SURGEON IN 10 DAYS, TEACG CARE OF TORIN DRAIN! Plan discussed with: Patient Dietary Evaluation Review Comments: 1. Currently NPO; pt not to go >7 days NPO diet only (Currently Day 1) 2. Rule out infectious causes for diarrhea; if stool tests are negative consider anti-diarrheal medication 3. Consider to monitor/replete lytes to WNL - noted hypokalemia, replacing Expected Outcomes/Goals: Timely diet progression, improved abd pain and GI sx. PATRICA GOULD MD Jun 24, 2024 10:36
[2024-06-24 12:30] VITALS: BP 120/72; PULSE 96; RESP 16; TEMP 98; O2SAT 97
[2024-06-24] MEDS ORDERED: CEPH500T PO (15:29)
[2024-06-24] MEDS ORDERED: ACET-1882 PO (15:29)
[2024-06-24] MEDS ORDERED: METR-344 PO (15:29)
--- NOTE | 2024-06-24 15:31 | DVHDSRES ---
Discharge Summary Date of Admission Resident Creating Document: MULU ORELLANA Jun 17, 2024 at 15:41 Date of Discharge: Jun 24, 2024 Admitting Diagnosis abdominal pains Labs/Diagnostic Data: PATIENT: YANET GARCIAT: [id number] UNIT: [id number] : 1995 LOC: [facility] ROOM / BED: [address] [place] [address] AGE / SEX: 28 / F ADM STATUS: ADM IN SERVICE 0839 ORDERING PHYSICIAN: MULU ORELLANA PROCEDURE(s): SMBG - SMALL BOWEL SERIES-W GASTROGRA REASON: rule out obstruction ORDER NUMBER(s): [id number], ACCESSION NUMBER(s): [id number] Procedure: XY SMALL BOWEL SERIES-W GASTROGRA Reason for study/Clinical History: rule out obstruction Comparison Study: None available at time of dictation. Technique: Single contrast small bowel series performed. FINDINGS/IMPRESSION: Initial manufacturing recruiter radiograph demonstrates nonspecific bowel-gas pattern surgical drain overlying the pelvis. Contrast is identified within the colon by 2 hours. This represents a normal small bowel transit time. ATED BY: SCOTT JACOBSEN MD DICTATED DATE/TIME: 06/22/24 1540 PATIENT: YANET GARCIAT: [id number] UNIT: [id number] : 1995 LOC: [facility] / BED: [address] [place] [address] AGE / SEX: 28 / F ADM STATUS: ADM IN SERVICE 1143 ORDERING PHYSICIAN: MULU ORELLANA PROCEDURE(s): KUB - KUB ABDOMEN SINGLE VIEW REASON: RULE OUT OBSTRUCTION ORDER NUMBER(s): [id number], ACCESSION NUMBER(s): [id number] Date: 06/21/2024 12:20 PM Examination: XY KUB ABDOMEN SINGLE VIEW History: RULE OUT OBSTRUCTION Comparison: XY KUB ABDOMEN SINGLE VIEW on DOS: 06/20/24, XY KUB ABDOMEN SINGLE VIEW on DOS: 06/20/24 TECHNIQUE: Single frontal view of the abdomen was obtained FINDINGS: Lines and tubes: Surgical drain overlies the right lower quadrant. Midline shelly noted. There are dilated small bowel loops. No supine radiographic evidence of pneumoperitoneum. Bony structures unremarkable. IMPRESSION: 1. Dilated small bowel loops throughout the abdomen. ATED BY: COY JESSICA MD DICTATED DATE/TIME: 06/21/24 1253 PATIENT: YANET GARCIAT: [id number] UNIT: [id number] : 1995 LOC: [facility] ROOM / BED: [address] [place] [address] AGE / SEX: 28 / F ADM STATUS: ADM IN SERVICE 0002 ORDERING PHYSICIAN: NITA ANDUJAR PROCEDURE(s): KUB - KUB ABDOMEN SINGLE VIEW REASON: ABDOMINAL PAIN ORDER NUMBER(s): [id number], ACCESSION NUMBER(s): [id number] ABDOMINAL RADIOGRAPH Indication: ABDOMINAL PAIN Technique: Single frontal view of the abdomen was obtained Comparison: None FINDINGS: Lines and tubes: Surgical drain overlies the right lower quadrant. Midline shelly noted. There are dilated small bowel loops. No supine radiographic evidence of pneumoperitoneum. Bony structures unremarkable. IMPRESSION: 1. Dilated small bowel loops throughout the abdomen. ATED BY: NALINI FLORIAN MD DICTATED DATE/TIME: 06/20/24 0705 PATIENT: YANET GARCIAT: [id number] UNIT: [id number] : 1995 LOC: ER ROOM / BED: / AGE / SEX: 28 / F ADM STATUS: REG ER SERVICE 1337 ORDERING PHYSICIAN: CLAUDINE RODRIGUEZ MD PROCEDURE(s): ABPL - CT AB PEL WO CON-NO ORAL OR IV REASON: colitis ORDER NUMBER(s): [id number], ACCESSION NUMBER(s): [id number] CT CT AB PEL WO CON-NO ORAL OR IV INDICATION: colitis : 28 old Female colitis EXAM DATE: 06/17/2024 01:53 PM COMPARISON: CT CT AB PEL WO CON-NO ORAL OR IV on DOS: 06/15/24 RADIATION DOSE: CTDIvol: 8.73 mGy, DLP: 463.39 mGy*cm PROCEDURE: Helical CT images were obtained of the abdomen and pelvis without IV contrast Sagittal and coronal reconstructions are provided. ORAL CONTRAST: None. ADDITIONAL IMAGES / REFORMATS: None All CT scans at this medical facility are performed using dose modulation techniques as appropriate to a performed exam including the following: Automated exposure control was utilized; adjustment of the MA and/or KV according to patient size; and use of iterative reconstruction technique. FINDINGS: LUNG BASE: Normal. LIVER: Hepatic steatosis. GALLBLADDER AND BILIARY TREE: No calcified gallstones. Normal caliber wall. No intra- or extrahepatic biliary ductal dilation. PANCREAS: Normal. SPLEEN: Normal. BOWEL: Enlarged appendix to 1.1 cm with periappendiceal fat stranding and fluid. ADRENALS: Normal. KIDNEYS AND URETER: Normal. BLADDER: Normal. REPRODUCTIVE ORGANS: 3.1 cm left ovaraian cyst. LYMPH NODES:No lymphadenopathy. PERITONEUM: Trace pelvic fluid. VESSELS: Normal. RETROPERITONEUM: Normal. ABDOMINAL WALL: Normal. BONES: Normal. IMPRESSION: Enlarged appendix to 1.1 cm with periappendiceal fat stranding and fluid can be acute appendicitis. Hepatic steatosis. Critical Result: acute appendicitis Findings discussed with dr rodriguez at 06/17/2024 02:26 PM and acknowledged receipt and understanding of the findings. ATED BY: FADI DERAS MD DICTATED DATE/TIME: 06/17/24 1430 Laboratory Results Test 06/24/24 08:29 06/22/24 12:55 06/19/24 11:46 06/18/24 08:34 White Blood Count 12.9 10^3/uL (4.4-10.8) Red Blood Count 3.91 10^6/uL (4.0-5.20) Hemoglobin 8.8 g/dL (12.2-16.2) Hematocrit 28.0 % (36.0-46.0) Mean Corpuscular Volume 71.6 fL (80.0-100.0) Mean Corpuscular Hemoglobin 22.6 pg (28.0-32.0) Mean Corpuscular Hemoglobin Concent 31.6 g/dL (32.0-36.0) Red Cell Distribution Width 19.1 % (11.8-14.3) Platelet Count 630 10^3/uL (140-450) Mean Platelet Volume 7.7 fL (6.9-10.8) Neutrophils (%) (Auto) 64.3 % (37.0-80.0) Lymphocytes (%) (Auto) 24.5 % (10.0-50.0) Monocytes (%) (Auto) 7.5 % (0.0-12.0) Eosinophils (%) (Auto) 3.3 % (0.0-7.0) Basophils (%) (Auto) 0.4 % (0.0-2.0) Neutrophils # (Auto) 8.3 10 ^3/uL (1.6-8.6) Lymphocytes # (Auto) 3.2 10 ^3/uL (0.4-5.4) Monocytes # (Auto) 1.0 10 ^3/uL (0-1.3) Eosinophils # (Auto) 0.4 10 ^3/uL (0-0.8) Basophils # (Auto) 0.1 10 ^3/uL (0-0.2) Nucleated Red Blood Cells 0.3 % Sodium Level 137 mmol/L (136-145) Potassium Level 4.0 mmol/L (3.5-5.1) Chloride Level 102 mmol/L (98-107) Carbon Dioxide Level 25 mmol/L (20-31) Anion Gap 10 (5-15) Blood Urea Nitrogen 8 mg/dL (9-23) Creatinine 0.68 mg/dL (0.550-1.02) Glomerular Filtration Rate Calc 120 mL/min (>90) BUN/Creatinine Ratio 11.8 (10.0-20.0) Serum Glucose 82 mg/dL (74-106) Calcium Level 9.8 mg/dL (8.7-10.4) Magnesium Level 2.0 mg/dL (1.6-2.6) Total Bilirubin 0.5 mg/dL (0.2-1.0) Aspartate Amino Transferase (AST) 13 U/L (13-40) Alanine Aminotransferase (ALT) 15 U/L (7-40) Alkaline Phosphatase 66 U/L (46-116) Total Protein 6.8 g/dL (5.7-8.2) Albumin 4.0 g/dL (3.2-4.8) Prothrombin Time 10.9 sec (9.3-11.8) Prothrombin Time INR 1.03 (0.9-1.15) Activated Partial Thromboplast Time 25.9 SEC (24.5-34.5) Hemoglobin A1c 5.4 % A1C (<5.7) Beta HCG, Quantitative 0.5 mIU/mL (1.5-4.2) Test 06/17/24 13:45 06/17/24 12:36 Lactic Acid Level 1.4 mmol/L (0.4-2.0) Urine Color [place] (Yellow) Urine Clarity Turbid (Clear) Urine pH 6.5 (5.0-9.0) Urine Specific [place] 1.030 (1.001-1.035) Urine Protein 2+ (Negative) Urine Ketones 1+ (Negative) Urine Blood Negative /uL (Negative) Urine Nitrite Negative (Negative) Urine Bilirubin 1+ (Negative) Urine Urobilinogen 6 mg/dL (Negative) Urine Leukocyte Esterase Trace /uL (Negative) Urine RBC 10 /hpf (0 - 4) Urine Microscopic WBC 9 /HPF (0-5) Urine Squamous Epithelial Cells Mod /hpf (<5) Urine Bacteria Few /hpf (None Seen) Urine Mucus Few (None Seen) Urine Glucose Normal mg/dL (Normal) Other Laboratory Tests 06/24/24 08:29 Brief Hx & Hospital Course: History and physical 28 y.o female with a Hx of DM, presents to the ED for a chief complaint of non- radiating, diffused abdominal pain, nausea, vomiting, diarrhea that has been ongoing for the past 2 days. Patient endorses on ongoing symptoms following initial unprovoked. Patient reports no recent sick contact, travel, spoiled food intake, or illicit substance use along with any additional relevant or pertinent information. Patient denies any hematemesis, constipation, urinary symptoms, chest pain, fever, chills, or other associated symptoms or modifiers at this time. Patient was seen 2 days ago at this ED, was admitted and discharged yesterday afternoon with the following diagnosed: Abdominal pain unspecified resolved, Nausea vomiting and Acute gastroenteritis. Patient reports she was prescribed medication but when she went to the pharmacy there was no order and is now back today because symptoms have not resolved. Patient notes pain was active upon discharge. Pmhx: DM Pshx: Denies all surgeries Fhx: DM; No stroke, cancer or heart diseases. Shx: No smoking or drinking Brief Hospital course Patient was septic due to acute appendicitis. She was started on iv antibiotic and optimized whiles surgery was immediately consulted of surgical intervention. Per the surgery, the plan was for laparoscopy appendectomy however given the situation during surgery this laparoscopic procedure was converted to open appendectomy. Procedure was very successful with a any complication postop and recovery also smooth with no complications. Patient currently in pain with that she has also been managed with pain medication and also continued to be covered with antibiotics. At the moment patient is passing gas no yet bowel movement electrolytes how often corrected patient is working about to enhance bowel movement otherwise she is fine from a medical standpoint patient is fine to be discharged. Recent the patient home on 2 antibiotics Keflex and metronidazole. Patient still has the drain in the she was seen by surgery today and plan is for her to follow up with the surgery team in the week for the drain removal. Patient's leukocytes are trending upwards likely reactive leukocytosis. We will get UA and blood culture just to be sure and we can go over this lab finding during her follow up at the discharge Clinic in the week. Review of symptoms Constitutional: Denies fever no chills no feeling of malaise HEENT: Denies headache, ear pain, ear discharges, conjunctivitis, nasal discharge throat pain Cardiovascular: Denies chest pain, palpitation, orthopnea, PND, or pedal edema Respiratory: Denies shortness of breath, cough cough, sputum production, hemoptysis, GI: abdominal pain, No nausea, vomiting, diarrhea, hematemesis, hematochezia, : Denies frequency, urgency, hematuria, Endocrine: Denies unintentional weight gain or weight loss, feeling of hot flashes, Jerson: Denies easy bruising, bleeding disorders, epistaxis Musculoskeletal: Denies joint pains, muscle aches Psych: No evidence of depression, sabina, suicidal ideation Examination General Appearance: Alert, Oriented X3, Cooperative, Mild- moderate acute distress, Abdominal pain HEENT: Atraumatic, PERRLA, EOMI, Mucous membrane moist/pink Respiratory: Clear to auscultation, Normal air movement Cardiovascular: Regular rate, Normal S1, Normal S2, No murmurs, no chest wall tenderness Abdominal: Distention, tenderness, bowel sounds present, incision site intact, shelly and drains present Extremities: No clubbing, No cyanosis, No edema, Normal pulses, No tenderness/swelling Skin: No rashes, No breakdown, No significant lesion Neuro: Normal gait but in pain from abdomen, Normal speech, Strength at 5/5 X2 ext, Normal tone, Sensation intact, Cranial nerves 3-12 NL, Reflexes 2+ Psych/Mental Status: Mental status NL, Mood NL Diagnoses Sepsis due to acute appendicitis Acute appendicitis s/p appendectomy Rule out incision site infection Hypokalemia--> IMPROVED ileus ruled out,Passing gas, Bowel sound present Microcytic anemia, likely IRON OBESITY GRADE 1, BMI 31.2 Asymptomatic UTI Leukocytosis, likely postop reactive Discharge plan Discharged home in a stable condition Continue antibiotics treatment Repeat urine and blood culture Advance diet as can tolerate Pain medication p.r.n. Encouraged ambulation Follow up at the discharge Clinic in 7 days for reassessment Follow up with the surgical team in 7 days for drain removal Patient advised to return to the ED if her condition does not improve. Discharge plan discussed with Dr. Candelario Consults/Reason for consult Surgery: Acute appendicitis Operations or Procedures Procedure Details Procedure Details: Patient was identified in the preop hold area is being Mrs. Garcia at this point in time she had been consented and preopped by myself she was brought back to the operating room placed in the operating room table in supine position after adequate induction of anesthesia antibiotics and time-out. The abdomen was prepped and draped in normal surgical fashion a incision was made just above the umbilicus using Veress needle technique the abdomen was entered with a needle and insufflated without difficulty. A this point in time 5 mm port was inserted at the site. A 2nd port was then placed in the midline below the umbilicus which was a 15 mm port. A 3rd port was placed above the initial incision. Which was a 5 mm port upon entering the abdomen the appendix was stuck down to the right lower quadrant there was fluid and murky purulent fluid noted in the pelvis this was cultured. The right lower quadrant was then irrigated out well. And dissection was then begun the omentum was then able to be dissected off of the right colon the appendix was visualized at the base however was extremely stuck retro cecal. After S long dissection it was decided that there was better to convert to an open procedure at this point in time the ports were removed a lower midline incision was made. Upon entering the abdomen in the right lower quadrant was dissected the appendix was then able to be brought up into the incision. The appendix was severely swollen the base of the appendix was identified and dissected out the appendix was then amputated with Endo-PERRY stapler. The appendix was then sent off for pathology. The abdomen was irrigated with a L of fluid. A TORIN drain was then placed in the mid umbilicus incision and then placed in the right lower quadrant. His axilla was secured in place with a 0 Prolene suture. The fascia was then closed with looped PDS suture x2. The dermis was reapproximated with the interrupted 2-0 Vicryl sutures skin was then closed at all incisions with shelly. A sterile dressing was applied sponge and needle counts were correct at the end of the procedure patient was taken to the PACU in stable condition. Specimen: Appendix Condition Good Condition at Discharge: Good Final Diagnosis/Problems List Sepsis due to acute appendicitis Acute appendicitis s/p appendectomy Rule out incision site infection Hypokalemia--> IMPROVED ileus ruled out,Passing gas, Bowel sound present Microcytic anemia, likely IRON OBESITY GRADE 1,BMI 33. Asymptomatic UTI likely postop reactive leukocytosis Discharge Disposition: Home Discharge Instruct/Medications Diet: See Comment Diet comment: Advance diet as tolerated Activity: Light activity, wallking Follow Up/Referral: 7 days are the discharge clinic and with Surgery for drain removal Medications: Cephalexin 500 mg bid and Metronidazole mg bid Discharge Statement: "Patient was advised to return to the ER or call 911 if any headaches, dizziness, shortness of breath, chest pain, abdominal pain, bleeding, fevers, or worsening of medical condition. Patient was counseled about treatment plan, medications, possible side effects, patientverbalized understanding. All questions were answered to the best of my ability. This discharge took greater then 30 minutes in planning, reviewing documentation, counseling the patient, and discussing with other team members." ASSESSMENT ASSESSMENT Assessment Sepsis due to acute appendicitis Acute appendicitis s/p appendectomy Rule out incision site infection Hypokalemia--> IMPROVED ileus ruled out,Passing gas, Bowel sound present Microcytic anemia, likely IRON OBESITY GRADE 1,BMI 31.2 Asymptomatic UTI likely postop reactive leukocytosis Date of Service: Jun 24, 2024 Billing Provider: LES CANDELARIO DO Common Visit Codes: 81164-IJR/OBS DISCH DAY >30min MULU ORELLANA RESIDENT Jun 24, 2024 15:31 LES CANDELARIO DO Jun 25, 2024 08:09
[2024-06-24 16:30] VITALS: BP 131/76; PULSE 76; RESP 16; TEMP 99; O2SAT 100
[2024-06-24 18:04] VITALS: BP 141/60; PULSE 90; RESP 17
== END 2024-06-24 18:37 | disposition home or self-care (01) | DRG 710 ==
LOC: ER 12:11 → OVERFLOW 15:41 → WEST WING 06-18 22:42
PROVIDERS: ADMIT Family Medicine; ATTEND Family Medicine
PROC: 0WJG4ZZ Inspection of Peritoneal Cavity, Percutaneous Endoscopic Approach (ICD-10-PCS; 2024-06-19)
PROC: 0DTJ0ZZ Resection of Appendix, Open Approach (ICD-10-PCS; principal; 2024-06-19 07:19)
DX: A41.9 Sepsis, unspecified organism (principal); K76.0 Fatty (change of) liver, not elsewhere classified; D50.9 Iron deficiency anemia, unspecified; D72.829 Elevated white blood cell count, unspecified; E11.9 Type 2 diabetes mellitus without complications; K35.80 Unspecified acute appendicitis; E66.9 Obesity, unspecified; T81.43XA Infection following a procedure, organ and space surgical site, initial encounter; N39.0 Urinary tract infection, site not specified; Z68.31 Body mass index [BMI] 31.0-31.9, adult; E87.6 Hypokalemia; F32.A Depression, unspecified; Z81.8 Family history of other mental and behavioral disorders; Z82.49 Family history of ischemic heart disease and other diseases of the circulatory system; Z88.6 Allergy status to analgesic agent; Z90.49 Acquired absence of other specified parts of digestive tract; Z53.31 Laparoscopic surgical procedure converted to open procedure
CPT/HCPCS: 36415; 74018; 74176; 74250; 80048; 80053; 81001; 83036; 83605; 83735; 84702; 85025; 85610; 85730; 86850; 86900; 86901; 87040; 87070; 87075; 87081; 87205; 96361; 96374; 99291; G0378; J0131; J0330; J1100; J2003; J2250; J2405; J2470; J2543; J2704; J3490